=== PATIENT | male | born 1950 | race Caucasian/White ===

== ENCOUNTER → 2020-04-01 12:27 | Outpatient (BNVA) | payer MEDICARE, SELFPAY | PROVIDERS: PCP Physician Assistant; Referring Provider Physician Assistant; Visit Provider Internal Medicine Cardiovascular Disease | DX: I42.1 Obstructive hypertrophic cardiomyopathy (principal); I34.0 Nonrheumatic mitral (valve) insufficiency; I51.7 Cardiomegaly; I25.10 Atherosclerotic heart disease of native coronary artery without angina pectoris; I71.2 Thoracic aortic aneurysm, without rupture; Z79.899 Other long term (current) drug therapy | CPT/HCPCS: 99212 ==

== ENCOUNTER → 2020-10-29 09:08 | Outpatient (BNVA) | payer MEDICARE, SELFPAY | PROVIDERS: PCP Physician Assistant; Referring Provider Physician Assistant; Visit Provider Internal Medicine Cardiovascular Disease | DX: I42.1 Obstructive hypertrophic cardiomyopathy (principal); I25.10 Atherosclerotic heart disease of native coronary artery without angina pectoris; I71.2 Thoracic aortic aneurysm, without rupture | CPT/HCPCS: 93005; 99212 ==

== ENCOUNTER 2021-08-19 06:04 | Outpatient (REF) | payer MEDICARE, SELFPAY ==
[2021-08-19 07:29] LABS: Hematocrit 44.9 % (42.0-52.0); Hemoglobin 15.3 g/dl (14.0-18.0); Mean Corpuscular HGB Conc 34.1 g/dl (31.0-36.0); Mean Corpuscular Hemoglobin 32.8 pg (27.0-33.0); Mean Corpuscular Volume 96.4 fL (80.0-98.0); Mean Platelet Volume 10.5 fL (9.4-12.4); Platelet Count 244 X10*3/uL (160-400); Red Blood Count 4.66 X10*6/uL (4.60-5.80); Red Cell Distribution Width 13.5 % (11.0-16.0); White Blood Count 4.1 X10*3/uL (4.8-10.8)
[2021-08-19 08:03] LABS: Creatinine Urine 45.45 mg/dL; Microalbumin Urine < 5.0 mg/L
[2021-08-19 08:04] LABS: Alanine Aminotransferase 27 U/L (0-40); Albumin Level 4.5 g/dL (3.5-5.0); Alkaline Phosphatase 64 U/L (39-117); Anion Gap 17 (12-20); Aspartate Amino Transferase 24 U/L (5-37); Bilirubin Total 0.8 mg/dL (0.0-1.0); Blood Urea Nitrogen 10 mg/dL (9-16); Calcium 9.7 mg/dL (8.4-10.2); Carbon Dioxide 24 mmol/L (22-29); Chloride 96 mmol/L (96-108); Cholesterol 148 mg/dL; Estimated Glomerular Filt Rate > 60; Glucose Fasting 97 mg/dL (60-99); HDL Cholesterol 67 mg/dL; Potassium 4.8 mmol/L (3.3-5.1); Sodium 132 mmol/L (135-145); Total Protein 7.9 g/dL (6.5-8.0)
[2021-08-19 08:12] LABS: LDL Cholesterol Calculated 69 mg/dl; Triglycerides 61 mg/dL
[2021-08-19 08:31] LABS: Prostate Specific Antigen Scr 6.65 ng/mL (<0.05-4.0); TSH reflex Free T4 0.59 uIU/mL (0.32-4.0)
== END 2021-08-19 06:05 | disposition home or self-care (01) ==
LOC: HO.LAB 06:04
PROVIDERS: PCP Physician Assistant; Visit Provider Physician Assistant
DX: I10 Essential (primary) hypertension (principal); I25.10 Atherosclerotic heart disease of native coronary artery without angina pectoris; Z12.5 Encounter for screening for malignant neoplasm of prostate
CPT/HCPCS: 36415; 80053; 80061; 82043; 84153; 84443; 85027

== ENCOUNTER → 2021-09-05 07:12 | Outpatient (REF) | payer MEDICARE, SELFPAY ==
--- NOTE | 2021-09-05 07:15 | CA_ITS ---
Transthoracic Echocardiogram Patient (Last, First, Middle): Checo Romero M Gender: Male Date of : 1950 Age: 71 Procedure Date: 09/05/2021 Procedure Type: Transthoracic Echocardiogram Location: OP Height: 182.88 cm Weight: 91.17 kg BSA: 2.13 m2 Heart Rate: bpm BP: 110 / 70 mmHg Pie Maker: SOBIA Referring MD: Matias Sesay MD Despatch Clerk: Matias Sesay MD Symptoms: I42.1 - Obstructive hypertrophic cardiomyopathy Study Quality: Good ECG Rhythm: Sinus Conclusions: - 1. Normal LV systolic function with moderate LVH and severe asymmetric septal hypertrophy with impaired relaxation filling pattern and elevated filling pressures, obstructive physiology was not apparent on this study 2. Severely dilated left atrium 3. Mild mitral regurgitation with moderate mitral calcification 4. Mildly dilated ascending aorta 5. No gross pericardial effusion Findings Left Ventricle Normal left ventricular size and systolic function. There is moderately increased left ventricular wall thickness. The visually estimated ejection fraction is between 65-70%. There is no dynamic left ventricular outflow tract obstruction. Spectral Doppler is indicative of an impaired relaxation filling pattern. Elevated filling pressures. E/E prime ratio is >15, consistent with elevated filling pressures. There is severe septal asymmetric hypertrophy. Right Ventricle Normal right ventricular cavity size and systolic function. Atria The left atrium is severely dilated. Interatrial shunt cannot be excluded. The right atrium is mildly dilated. Aortic Valve There is mild calcification of the aortic valve. There is no aortic valve stenosis. There is no aortic valve regurgitation. Mitral Valve There is mild anterior and moderate posterior mitral leaflet thickening. There is moderate mitral annular calcification. There is mild mitral valve regurgitation. There is no mitral valve stenosis. Pulmonic Valve The pulmonic valve was not well visualized. Tricuspid Valve Likely normal tricuspid valve structure and function. There is mild tricuspid valve regurgitation. The right ventricular systolic pressure is normal. The right ventricular systolic pressure is 34 mmHg. Normal right atrial pressure. There is no evidence of pulmonary hypertension. Great Vessels The pulmonary artery was not well visualized. There is mild dilatation of the ascending aorta. Venous The inferior vena cava is normal in size and collapses greater than 50% with inspiration. Pericardium/Pleural There is no evidence of pericardial effusion. Measurements 2D Linear Measurements IVSd: 1.81 0.6-0.9/0.6-1.0 cm LVIDd: 4.16 3.9-5.3/4.2-5.9 cm LVIDd Index: 1.95 2.4-3.2/2.2-3.1 cm/m2 LVIDs: 1.99 2.0-3.6 cm LVPWd: 1.51 0.7-1.1 cm LA Diam: 4.60 2.7-3.8/3.0-4.0 cm LAIDs Index: 2.16 1.5-2.3 cm/m2 LV Mass: 360.38 67-162/88-224 g LV Mass Index: 169.19 43-95/49-115 g/m2 LVOT Diam: 2.50 3.0+(-)1.3 cm 2D Systolic Function EF 4C: 66.20 >55% EF 2C: 65.30 >55% EF BiP: 67.00 >55% Mitral Valve MV Pk E: 1.04 MV PK A: 1.45 MV Decel Time: 281.00 E/A: 0.70 E'Lateral: 7.18 E'Medial: 5.33 E/E' Med: 19.50 E/E' Lat: 14.50 PHT: 82.00 MVA PHT: 2.68 Decel Bailey: 3.72 Aortic Valve AoV Pk Gil: 1.89 AoV Mn Gil: 1.36 AoV VTI: 0.42 AoV Pk Grad: 14.00 Aov Mn Grad: 8.00 QUINTON Cont.VTI: 4.64 LVOT LVOT Pk Gil: 1.71 LVOT Mn Gil: 1.26 LVOT VTI: 0.40 LVOT Pk Grad: 12.00 LVOT Mn Grad: 7.00 LVOT Diam: 2.50 LVOT Area: 4.91 Diastolic Function MV Pk E: 1.04 MV Pk A: 1.45 E/A: 0.70 E'Medial: 5.33 E/E' Med: 19.50 E' Laterial: 7.18 E/E' Lat: 14.50 Right Ventricle TAPSE (mm): 19.40 TVS' Gil: 16.10 Tricuspid Valve TR Pk Gil: 2.80 TR Pk Grad: 31.00 RA Press: 3.00 RVSP: 34.00 Great Vessels Aorta Sinus of Valsalva: 3.80 2.0-3.[address] [place]: 2.74 1.7-3.4 cm Ao Asc: 3.80 2.1-3.4 cm Updated in Other Vendor System with Status of Final Matias Sesay MD electronically signed on 09/06/2021 1:43:47 PM with status of Final
== END ==
LOC: HO.CARD 07:12
PROVIDERS: Visit Provider Internal Medicine Cardiovascular Disease
DX: I42.1 Obstructive hypertrophic cardiomyopathy (principal)
CPT/HCPCS: 93306

== ENCOUNTER → 2021-11-03 08:30 | Outpatient (BNVA) | payer MEDICARE, SELFPAY | PROVIDERS: PCP Physician Assistant; Referring Provider Physician Assistant; Visit Provider Internal Medicine Cardiovascular Disease | DX: I42.1 Obstructive hypertrophic cardiomyopathy (principal); I25.10 Atherosclerotic heart disease of native coronary artery without angina pectoris; I71.2 Thoracic aortic aneurysm, without rupture | CPT/HCPCS: 93005; 99212 ==

== ENCOUNTER 2022-04-06 05:58 | Outpatient (REF) | payer MEDICARE, SELFPAY ==
[2022-04-06 07:36] LABS: Hematocrit 46.4 % (42.0-52.0); Hemoglobin 15.6 g/dl (14.0-18.0); Mean Corpuscular HGB Conc 33.6 g/dl (31.0-36.0); Mean Corpuscular Hemoglobin 32.3 pg (27.0-33.0); Mean Corpuscular Volume 96.1 fL (80.0-98.0); Mean Platelet Volume 10.7 fL (9.4-12.4); Platelet Count 211 X10*3/uL (160-400); Red Blood Count 4.83 X10*6/uL (4.60-5.80); Red Cell Distribution Width 13.8 % (11.0-16.0)
[2022-04-06 07:57] LABS: Alanine Aminotransferase 51 U/L (0-40); Albumin Level 4.2 g/dL (3.5-5.0); Alkaline Phosphatase 71 U/L (39-117); Anion Gap 19 (12-20); Aspartate Amino Transferase 28 U/L (5-37); Blood Urea Nitrogen 14 mg/dL (9-16); Calcium 9.3 mg/dL (8.4-10.2); Carbon Dioxide 22 mmol/L (22-29); Chloride 102 mmol/L (96-108); Cholesterol 134 mg/dL; Estimated Glomerular Filt Rate > 60; Glucose Fasting 96 mg/dL (60-99); HDL Cholesterol 52 mg/dL; LDL Cholesterol Calculated 70 mg/dl; Potassium 4.4 mmol/L (3.3-5.1); Sodium 139 mmol/L (135-145); Total Protein 7.2 g/dL (6.5-8.0); Triglycerides 64 mg/dL
== END 2022-04-06 05:59 | disposition home or self-care (01) ==
LOC: HO.LAB 05:58
PROVIDERS: PCP Physician Assistant; Visit Provider Physician Assistant
DX: I25.10 Atherosclerotic heart disease of native coronary artery without angina pectoris (principal); I10 Essential (primary) hypertension
CPT/HCPCS: 36415; 80053; 80061; 85027

== ENCOUNTER → 2022-04-27 07:35 | Outpatient (REF) | payer MEDICARE, SELFPAY ==
--- NOTE | 2022-04-27 07:38 | HM_ITS ---
Conclusion: 1. Patient was monitored for total period of 3 days and 1 hour 2. Baseline was atrial fibrillation with average heart of 92 beats per minute 3. No significant pauses noted 4. Total of 5878 PVCs accounting for 1.5% of total beats account for frequent PVCs 5. 1 3 beat run of nonsustained VT at 129 beats per minute 6. Patient reported event correlated with underlying atrial fibrillation MTDD
== END ==
LOC: HO.CARD 07:35
PROVIDERS: PCP Physician Assistant; Visit Provider Physician Assistant
DX: I48.91 Unspecified atrial fibrillation (principal)
CPT/HCPCS: 93242

== ENCOUNTER → 2022-05-22 08:32 | Outpatient (BNVA) | payer MEDICARE, SELFPAY | PROVIDERS: PCP Physician Assistant; Referring Provider Physician Assistant; Visit Provider Internal Medicine Cardiovascular Disease | DX: I48.19 Other persistent atrial fibrillation (principal); I42.1 Obstructive hypertrophic cardiomyopathy; I71.20 Thoracic aortic aneurysm, without rupture, unspecified | CPT/HCPCS: 93005; 99212 ==

== ENCOUNTER 2022-06-03 12:22 | Day surgery (SDC) | payer MEDICARE, SELFPAY ==
[2022-05-28 11:09] VITALS: BMI 28.5
--- NOTE | 2022-06-02 10:38 | P.CONAN_ITS ---
Documented by User: Yoly Gleason NP 06/02/22 10:39 HPI - Anesthesia Eval Consult details Narrative: 72yo M for Cardioversion Radha [facility] Active Problems Active Problems: All Active Problems (Updated 05/28/22 @ 11:11 by Kalina Randall RN) Elevated PSA (Acute) Folliculitis (Acute) Medicare annual wellness visit, initial (Acute) Colon cancer screening (Acute) Persistent atrial fibrillation (Acute) HOCM (hypertrophic obstructive cardiomyopathy) (Acute) LVH (left ventricular hypertrophy) (Acute) CAD (coronary artery disease) (Acute) Thoracic aortic aneurysm (Acute) Mitral regurgitation (Acute) HTN (hypertension) (Acute) Past Medical History Medical History (Updated 05/28/22 @ 11:11 by Kalina Randall RN) CAD (coronary artery disease) History of COVID-19 HOCM (hypertrophic obstructive cardiomyopathy) HTN (hypertension) LVH (left ventricular hypertrophy) Mitral regurgitation Thoracic aortic aneurysm Family History Family History Father Bladder cancer Mother ARF (acute renal failure) Surgical History Surgical History No pertinent past surgical history Social History Social History Housing: House Are you a primary lawn care specialist to a significant other at home: No Do you presently have visiting nurse or other home services: No Alcohol intake: current Alcohol intake frequency: holidays/special occasions only Patient Tobacco Use Status: Never used Tobacco e-Cigarette/Vaping Use: Never Used Second Hand Smoke Exposure: No Use of substances other than those prescribed or required for medical reasons: No Have you been hit, kicked, punched, or otherwise hurt by someone within the past year? If so, by whom?: No Are you DNR?: No Advance Directives: No Advance Directives Information Provided: Yes (brochure mailed) Advance Directives on File: No Recently lost weight without trying: No Eating poorly because of decreased appetite: No Nutrition Risks: No Nutritional Risk Poor oral hygiene: No service: No Current occupational status: employed Cognitive needs: No Hearing needs: No Vision needs: Yes Meds Allergies Allergy/AdvReac Type Severity Reaction Status Date / Time No Known Allergies Allergy Verified 05/22/22 08:41 [No Known Allergies*] Home Medications Medication Instructions Recorded Confirmed Last Taken Type simvastatin 20 mg tablet 20 mg PO QAM 05/28/22 05/28/22 Unknown History Exam Exam Date and Time: June 02, 2022 1038 Height,Weight and Vital Signs: Height 6 ft Weight 95.254 kg Narrative Narrative: EKG 04/2022 atrial fibrillation rapid ventricular response with left axis deviation ECHO 08/2021 Conclusions: -? 1.? Normal LV systolic function with moderate LVH and severe? asymmetric septal hypertrophy with impaired relaxation filling ? pattern and elevated filling pressures,? obstructive physiology? was not apparent on this study ? 2. Severely dilated left atrium? 3.? Mild mitral regurgitation with moderate mitral calcification 4. Mildly dilated ascending aorta? 5.? No gross pericardial effusion Assessment and Plan Assessment Anesthesia Assessment: Chart Reviewed Documented by User: Zana Escoto MD 06/03/22 13:58 [facility] Past Medical History Medical History (Updated 05/28/22 @ 11:11 by Kalina Randall RN) CAD (coronary artery disease) History of COVID-19 HOCM (hypertrophic obstructive cardiomyopathy) HTN (hypertension) LVH (left ventricular hypertrophy) Mitral regurgitation Thoracic aortic aneurysm Family History Family History Father Bladder cancer Mother ARF (acute renal failure) Family history of problems with anesthesia: No Surgical History Surgical History No pertinent past surgical history History of Problems with Anesthesia: No Social History Social History Housing: House Are you a primary lawn care specialist to a significant other at home: No Do you presently have visiting nurse or other home services: No Alcohol intake: current Alcohol intake frequency: holidays/special occasions only Patient Tobacco Use Status: Never used Tobacco e-Cigarette/Vaping Use: Never Used Second Hand Smoke Exposure: No Use of substances other than those prescribed or required for medical reasons: No Have you been hit, kicked, punched, or otherwise hurt by someone within the past year? If so, by whom?: No Are you DNR?: No Advance Directives: No Advance Directives Information Provided: Yes (brochure mailed) Advance Directives on File: No Recently lost weight without trying: No Eating poorly because of decreased appetite: No Nutrition Risks: No Nutritional Risk Poor oral hygiene: No service: No Current occupational status: employed Cognitive needs: No Hearing needs: No Vision needs: Yes Meds Allergies Allergy/AdvReac Type Severity Reaction Status Date / Time No Known Allergies Allergy Verified 05/22/22 08:41 [No Known Allergies*] Home Medications Medication Instructions Recorded Confirmed Last Taken Type simvastatin 20 mg tablet 20 mg PO QAM 05/28/22 05/28/22 Unknown History Exam Airway Mallampati Class: III TM Dist: >3cm Neck ROM: Full Loose/Missing/Broken Teeth: No Heart: irrr Lungs: clear Assessment and Plan Final Anesthetic Review Family History of Problems with Anesthesia: No History of Problems with Anesthesia: No NPO: Yes ASA Class: III Final Preanesthetic Review: No Changes in Pt Med Stat, Meds/Allgs Chart Reviewed, Consent Obtained/Reviewed and Anes Risks/Benef Reviewed Patient Risk: Intermediate Procedure Risk: Low Anesthetic Plan Anesthetic Plan: MAC: Disposition: Standard PACU
[2022-06-03] VITALS (7 sets, daily range): BP systolic 102–147; BP diastolic 69–95; PULSE 59–94; RESP 12–18; TEMP 36.4–36.7; O2SAT 93–99
[2022-06-03] MEDS: Lactated Ringers 1,000 ML 50 ML IVCONT (13:21)
--- NOTE | 2022-06-03 14:11 | MHC.SHP ---
Pre-Procedural Eval Section A Date of Service: 06/03/22 The patient is an INPATIENT: No Changes since office visit: Yes Patient answered all questions; No Cold of Flu in the past 2 weeks, No New Medical Problems and No Changes in Medication The History & Physical has been completed within 30 days and I have reviewed it.: Yes Section B Chief Complaint: Paroxysmal atrial fibrillation Allergies: Allergies Allergy/AdvReac Type Severity Reaction Status Date / Time No Known Allergies Allergy Verified 05/22/22 08:41 [No Known Allergies*] Plan I have reviewed the history and physical and performed a pertinent physical examination on my patient. No changes have occurred unless specified. Time Spent With Patient Time: Total time managing care of this patient today ____ minutes.
--- NOTE | 2022-06-03 14:26 | ECG_ITS ---
Test Reason : postop Blood Pressure : / mmHG Vent. Rate : 061 BPM Atrial Rate : 061 BPM P-R Int : 234 ms QRS Dur : 096 ms QT Int : 454 ms P-R-T Axes : 024 -34 032 degrees QTc Int : 457 ms Sinus rhythm with 1st degree A-V block Possible Left atrial enlargement Left axis deviation Minimal voltage criteria for LVH, may be normal variant ( [place] product ) Abnormal ECG No previous ECGs available Referred By: Matias Sesay Electronically Signed By:AZALIA GUADALUPE
--- NOTE | 2022-06-03 14:28 | HO.CARDIVERS ---
Cardioversion Procedure Note Cardioversion Date of Procedure: Today Ordering Provider: Myself Performing Provider: Myself Indication for Procedure: Persistent atrial fibrillation Pre-Op Diagnosis: Persistent atrial fibrillation Post-Op Diagnosis: Sinus rhythm Performed with Transesophageal Echo: No History: See my office note Consent: Verbal and Written consent was obtained from the patient before starting the procedure and confirming oral anticoagulation use. The patient was made aware of the risk of synchronized cardioversion including benefits and alternatives Procedure: After consent obtained, cardioversion pads were attached in anteroposterior configuration and the patient was sedated by the anesthesia team. Once adequate sedation achieved, patient was delivered 200 joules of biphasic synchronized energy in anteroposterior configuration Complications: None Impression: Successful conversion to sinus rhythm Recommendations: 1. Twelve lead EKG 2. Continue Multaq and oral anticoagulation 3. Follow up in the clinic after 4 weeks after Holter monitor
== END 2022-06-03 15:32 | disposition home or self-care (01) ==
PROVIDERS: PCP Physician Assistant; Visit Provider Internal Medicine Cardiovascular Disease
PROC: 5A2204Z Restoration of Cardiac Rhythm, Single (ICD-10-PCS; principal; 2022-06-03 14:00)
DX: I48.19 Other persistent atrial fibrillation (principal); Z79.01 Long term (current) use of anticoagulants; I42.1 Obstructive hypertrophic cardiomyopathy; I71.20 Thoracic aortic aneurysm, without rupture, unspecified; I10 Essential (primary) hypertension; I25.10 Atherosclerotic heart disease of native coronary artery without angina pectoris; Z79.899 Other long term (current) drug therapy
CPT/HCPCS: 92960; 93005

== ENCOUNTER → 2022-06-18 06:56 | Outpatient (REF) | payer MEDICARE, SELFPAY ==
--- NOTE | 2022-06-18 06:58 | HM_ITS ---
Conclusion: 1. Patient was monitored for total period of 3 days 2. Baseline was normal sinus rhythm with average heart of 69 beats per minute with first-degree AV block 2. No significant episodes of atrial fibrillation 4. Total of 1730 PACs accounting for 0.6% total beats account for occasional PACs 5. Total of 1979 PVCs accounting for 0.7% total beats account for occasional PVCs 6. 3 episodes of nonsustained VT with the fastest at 129 beats per minute and the longest as 6 beats 7. No significant pauses or bradycardia noted 8. No patient reported events MTDD
== END ==
LOC: HO.CARD 06:56
PROVIDERS: PCP Physician Assistant; Visit Provider Internal Medicine Cardiovascular Disease
DX: I48.19 Other persistent atrial fibrillation (principal)
CPT/HCPCS: 93242

== ENCOUNTER → 2022-06-30 12:46 | Outpatient (BNVA) | payer MEDICARE, SELFPAY | PROVIDERS: PCP Physician Assistant; Referring Provider Physician Assistant; Visit Provider Internal Medicine Cardiovascular Disease | DX: I48.0 Paroxysmal atrial fibrillation (principal); I42.1 Obstructive hypertrophic cardiomyopathy; I71.20 Thoracic aortic aneurysm, without rupture, unspecified | CPT/HCPCS: 93005; 99212 ==

== ENCOUNTER → 2022-08-31 08:13 | Outpatient (BNVA) | payer MEDICARE, SELFPAY | PROVIDERS: PCP Physician Assistant; Referring Provider Physician Assistant; Visit Provider Internal Medicine Cardiovascular Disease | DX: I44.0 Atrioventricular block, first degree (principal); R94.31 Abnormal electrocardiogram [ECG] [EKG] | CPT/HCPCS: 93005 ==

== ENCOUNTER → 2022-11-16 08:26 | Outpatient (REF) | payer SELFPAY ==
--- NOTE | 2022-11-16 08:30 | CA_ITS ---
Transthoracic Echocardiogram Patient (Last, First, Middle): Checo Romero M Gender: Male Date of : 1950 Age: 72 Procedure Date: 11/16/2022 Procedure Type: Transthoracic Echocardiogram Location: OP Height: 182.88 cm Weight: 92.99 kg BSA: 2.15 m2 Heart Rate: 66 bpm BP: 124 / 68 mmHg Vacation Planner: Referring MD: Matias Sesay MD Symptoms: I42.1 - Obstructive hypertrophic cardiomyopathy Study Quality: Adequate ECG Rhythm: Sinus Conclusions: - The left ventricular systolic function is normal. The calculated ejection fraction is 64% by biplane method. - There is severely increased left ventricular wall thickness. - The left atrium is severely dilated. - There is moderate posterior mitral annular calcification. - There is mild dilatation of the ascending aorta measuring 4.20 cm. Findings Left Ventricle Normal left ventricular cavity size. There is severely increased left ventricular wall thickness. The left ventricular systolic function is normal. The calculated ejection fraction is 64% by biplane method. There is no evidence of regional wall motion abnormalities. There is no dynamic left ventricular outflow tract obstruction. Evidence suggests grade II (moderate) diastolic dysfunction. LV peak GLS -16.4%. Right Ventricle Normal right ventricular cavity size and systolic function. Atria The left atrium is severely dilated. The right atrium is normal in size. Aortic Valve There is a normal trileaflet aortic valve. There is no aortic valve stenosis. There is no aortic valve regurgitation. Mitral Valve There is moderate posterior mitral annular calcification. There is mild mitral valve regurgitation. There is no mitral valve stenosis. Pulmonic Valve The pulmonic valve is likely normal. Tricuspid Valve Normal tricuspid valve structure. There is mild tricuspid valve regurgitation. Borderline RVSP. Great Vessels There is mild dilatation of the ascending aorta measuring 4.20 cm. Venous The inferior vena cava is normal in size and collapses greater than 50% with inspiration. Pericardium/Pleural There is no evidence of pericardial effusion. Prior Study Comparison Changes noted compared to prior study dated: 09/05/2021. see comment on ascending aorta. Measurements 2D Linear Measurements IVSd: 1.56 0.6-0.9/0.6-1.0 cm LVIDd: 4.12 3.9-5.3/4.2-5.9 cm LVIDd Index: 1.92 2.4-3.2/2.2-3.1 cm/m2 LVIDs: 2.29 2.0-3.6 cm LVPWd: 1.50 0.7-1.1 cm LA Diam: 4.70 2.7-3.8/3.0-4.0 cm LAIDs Index: 2.19 1.5-2.3 cm/m2 LV Mass: 312.22 67-162/88-224 g LV Mass Index: 145.22 43-95/49-115 g/m2 LVOT Diam: 2.40 3.0+(-)1.3 cm 2D Systolic Function EF 4C: 63.80 >55% EF 2C: 63.20 >55% EF BiP: 63.80 >55% Mitral Valve MV VTI: 0.41 MV Pk Gil: 1.21 MV Mn Gil: 0.75 MV Pk Grad: 6.00 MV Mn Grad: 3.00 MV Pk E: 1.20 MV PK A: 1.25 MV Decel Time: 218.00 E/A: 1.00 E'Lateral: 5.33 E'Medial: 5.33 E/E' Med: 22.50 E/E' Lat: 22.50 PHT: 64.00 MVA PHT: 3.44 MVA Continuity: 3.54 Decel [place]: 5.50 Aortic Valve AoV Pk Gil: 1.88 AoV Mn Gil: 1.29 AoV VTI: 0.46 AoV Pk Grad: 14.00 Aov Mn Grad: 8.00 QUINTON Cont.VTI: 3.17 LVOT LVOT Pk Gil: 1.34 LVOT Mn Gil: 0.90 LVOT VTI: 0.32 LVOT Pk Grad: 7.00 LVOT Mn Grad: 4.00 LVOT Diam: 2.40 LVOT Area: 4.52 Diastolic Function MV Pk E: 1.20 MV Pk A: 1.25 E/A: 1.00 E'Medial: 5.33 E/E' Med: 22.50 E' Laterial: 5.33 E/E' Lat: 22.50 Right Ventricle TAPSE (mm): 31.60 TVS' Gil: 11.10 Tricuspid Valve TR Pk Gil: 2.82 TR Pk Grad: 32.00 RA Press: 3.00 RVSP: 35.00 Great Vessels Aorta Sinus of Valsalva: 3.60 2.0-3.5 cm Ao Asc: 4.20 2.1-3.4 cm Pulmonary Valve PV Pk Gil: 1.62 Peak PV Grad: 10.00 Updated in Other Vendor System with Status of Final Joe Andrews MD electronically signed on 11/16/2022 4:28:38 PM with status of Final
--- NOTE | 2022-11-16 08:30 | HM_ITS ---
* Total monitoring time 3 days. * Underlying rhythm is sinus. Average ventricular rate 69/Min. Range 59 to 104/Min. * Rare premature ventricular ectopy with minimal burden. 2 short runs, 4 beats and 5 beats. * Rare premature supraventricular ectopy with minimal burden. * No sustained arrhythmias. * Brief mobitz 1 wenckebach block during sleep hours. * No patient markers or diary events. MTDD
== END ==
LOC: HO.CARD 08:26
PROVIDERS: PCP Physician Assistant; Visit Provider Internal Medicine Cardiovascular Disease
DX: I42.1 Obstructive hypertrophic cardiomyopathy (principal); I48.19 Other persistent atrial fibrillation
CPT/HCPCS: 93242; 93306; 93356

== ENCOUNTER 2022-12-28 10:32 | Outpatient (AMB) | payer MEDICARE, SELFPAY ==
--- NOTE | 2022-12-28 10:33 | MHC.OFFVIS ---
Intake Vital Signs 12/28/22 10:35 Height 6 ft Weight 196 lb 3.382 oz BMI 26.6 BP 110/70 Blood Pressure Location Lt brachial Position Sitting Pulse 83 Intake Visit Reasons: 6 mth f/ up Intake Note: 6 month follow-up with ekg feeling good Craft Worker Required: No Allergies No Known Allergies [No Known Allergies*] Allergy (Verified 05/22/22 08:41) Medication List - Last Reconciled 12/28/22 by Matias Sesay MD apixaban (Eliquis) 5 mg PO BID 90 days dronedarone (Multaq) 400 mg PO BID 90 days lisinopril 20 mg PO DAILY metoprolol succinate ER (Toprol XL) 50 mg PO DAILY pravastatin 40 mg PO DAILY 90 days HPI HPI Comments History of Present Illness Details Checo comes for follow-up. He has been doing well from cardiac perspective. Has had no recurrent episodes of atrial fibrillation. Tolerating his medications well. Denies any orthopnea, PND. Denies any exertional chest pain or shortness of breath. No lightheadedness, syncope. Takes all his medications. Takes all his medications regularly denies any complications. No bleeding issues or neurologic events. Most recent echocardiogram shows mild enlargement of thoracic aorta with severe LVH with grade 2 diastolic dysfunction with no noted left ventricular outflow tract obstruction on this study. [facility] Medical History CAD (coronary artery disease) History of COVID-19 HOCM (hypertrophic obstructive cardiomyopathy) HTN (hypertension) LVH (left ventricular hypertrophy) Mitral regurgitation Persistent atrial fibrillation Thoracic aortic aneurysm Surgical History No pertinent past surgical history Family History Father Bladder cancer Mother ARF (acute renal failure) Social History Housing: House Are you a primary child care attendant to a significant other at home: No Do you presently have visiting nurse or other home services: No Alcohol intake: current Alcohol intake frequency: holidays/special occasions only Patient Tobacco Use Status: Never used Tobacco e-Cigarette/Vaping Use: Never Used Second Hand Smoke Exposure: No service: No Current occupational status: employed Cognitive needs: No Hearing needs: No Vision needs: Yes Review of Systems Const Denies chills, Denies fatigue, Denies fever(s), Denies frequent falls, Denies weakness, Denies weight gain and Denies weight loss ENT Denies dizziness Card Denies chest pain, Denies leg edema, Denies lightheadedness, Denies palpitations, Denies dyspnea, Denies dyspnea on exertion, Denies orthopnea and Denies other (loss of consciousness) Resp Denies cough, Denies dyspnea and Denies dyspnea on exertion GI Denies hematochezia and Denies change in stool character Musc Denies abnormal gait, Denies muscle weakness, Denies numbness, Denies radiating pain into limb and Denies tingling Neuro Denies abnormal gait, Denies dizziness, Denies frequent falls, Denies numbness, Denies tingling and Denies weakness Endo Denies fatigue and Denies palpitations Physical Exam Vital Signs: Last Vital Signs Pulse 83 12/28/22 10:35 BP 110/70 12/28/22 10:35 BMI result Body Mass Index 26.6 Const General: cooperative, comfortable, no acute distress, alert, awake, Physically active and well groomed Nutritional Appearance: overweight Orientation/consciousness: patient oriented x3 Limitations: no limitations Neck Neck: Yes trachea midline, Yes supple and Yes no JVD Resp Effort & Inspection: normal respiratory effort Auscultation: clear to auscultation bilaterally Cardio Jugular venous distension: no JVD Palpation: normal PMI Rate: regular rate Rhythm: regular rhythm Heart sounds: S1 normal heart sound present, S2 normal heart sound present, no click, no gallops and Murmur heart sound present systolic early GI Auscultation: normal bowel sounds Skin General skin exam: no rashes or lesions noted Neuro General: patient oriented x3 and no focal motor deficits Extrem General: Yes no clubbing, cyanosis or edema Psych Appearance: grossly normal Office Procedures EKG Details: EKG shows sinus rhythm first-degree AV block with possible left atrial enlargement with septal QS pattern with nonspecific ST changes with normal QTC interval [id number], Complete Assessment & Plan Assessment & Plan (1) Paroxysmal atrial fibrillation: Code(s): I48.0 - Paroxysmal atrial fibrillation Plan: Paroxysmal atrial fibrillation which has remained suppressed on therapy with Multaq. He has done very well with rhythm control approach will continue pursue rhythm control approach. Continue Multaq 400 mg b.i.d.. Semi annual renal function test should be pursued given that he is on oral anticoagulation with Eliquis. Continue the same at 5 mg b.i.d.. Quarterly EKGs will be required and will be scheduled for him while on Multaq therapy. Continue aggressive blood pressure control. Given his significant LVH in atrial fibrillation would suggest him to have screening for cardiac infiltrative disorder such as amyloidosis especially ATTR type. (2) LVH (left ventricular hypertrophy): Comment: Left ventricular wall thickness which is increased out of proportion to his hypertension. However there is no evidence of infiltrative disorder such as amyloidosis. Continue aggressive control of blood pressure at this time. Will follow with echocardiogram on a yearly basis. Code(s): I51.7 - Cardiomegaly Plan: Significant left ventricle hypertrophic could be related to hypertension but is out of proportion. On MRI there is is suggestive hypertrophic cardiomyopathy. Although other infiltrative disorder need to be ruled out. Will suggest him to undergo cardiac amyloidosis study as well as blood test to evaluate for light chain amyloidosis. No signs or symptoms of right heart failure. Continue aggressive blood pressure control. (3) Thoracic aortic aneurysm: Code(s): I71.2 - Thoracic aortic aneurysm, without rupture Plan: Thoracic aortic aneurysm which is remained mild. Continue to monitor clinically and by echocardiogram on annual basis. No interventions required. Continue aggressive risk factor modification. Blood pressure is well optimized LDL is well optimized. Advised to avoid sudden strenuous isometric exercise. Will follow up in the clinic in 1 year with me. He EKGs every 3 months Coding Level of Care Code Est Pt Level 4 (00100) Diagnoses Paroxysmal atrial fibrillation I48.0 LVH (left ventricular hypertrophy) I51.7 Thoracic aortic aneurysm I71.2 CPT Codes EKG - CPT: [id number], Complete ([id number])
[2022-12-28 10:35] VITALS: BP 110/70; PULSE 83; BMI 26.6
== END 2022-12-28 10:56 | disposition home or self-care (01) ==
PROVIDERS: Visit Provider Internal Medicine Cardiovascular Disease
DX: I48.0 Paroxysmal atrial fibrillation (principal); I51.7 Cardiomegaly; I71.20 Thoracic aortic aneurysm, without rupture, unspecified
CPT/HCPCS: 93010; 99214

== ENCOUNTER → 2022-12-28 10:32 | Outpatient (BNVA) | payer MEDICARE, SELFPAY | PROVIDERS: Visit Provider Internal Medicine Cardiovascular Disease | DX: I48.0 Paroxysmal atrial fibrillation (principal); I51.7 Cardiomegaly; I71.20 Thoracic aortic aneurysm, without rupture, unspecified | CPT/HCPCS: 93005; 99212 ==

== ENCOUNTER 2023-01-07 09:18 | Outpatient (AMB) | payer MEDICARE, SELFPAY ==
--- NOTE | 2023-01-07 09:18 | A.OFFPC_ITS ---
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 Accompanied by: Self / Same As Patient Allergies No Known Allergies [No Known Allergies*] Allergy (Verified 01/07/23 09:32) Medication List - Last Reconciled 01/07/23 by Jean-Claude Rios PA-C apixaban (Eliquis) 5 mg PO BID 90 days dronedarone (Multaq) 400 mg PO BID 90 days lisinopril 20 mg PO DAILY metoprolol succinate ER (Toprol XL) 50 mg PO DAILY pravastatin 40 mg PO DAILY 90 days Tobacco use date assessed: 01/07/23 Fall risk assessment: No Falls in past year Last assessed Fall Risk: 01/07/23 Dental Screening Dental Screen Date: 01/07/23 Did you have a dental visit in the last 12 months?: Yes Did you have a dental problem in the last 6 months where you did not have access to dental care?: No Was dental information given to patient?: Patient has dentist HPI f/u HTN/ AFIB HPI Details Patient is a 72 y/o M here today for follow-up visit Patient has a past medical history of hypertension, hyperlipidemia, BPH, coronary artery disease.. ? .. ? CAD: Patient was followed by Dr. Sesay, recent cardiac showing moderate hypertrophic cardiomyopathy.? This will be followed and no? intervention at the same.? Patient denies any issues with chest pain, headaches, dizziness. .. AFib (paroxysmal): Recently found to have AFib, underwent cardiac cardioversion and has been started on anticoagulation. Denies any overt signs of bleeding. Rate / rhythm control with metoprolol and multaq. ECHO- showing LVH and holter has been stable. No evidence of protein deposit disease. Charge Entry Clerk sending patient for nuclear cardiac test .. Hypertension:? Blood pressure elevated today in office in office likely secondary to his AFib. ? .. ? Impaired fasting blood sugars:? Blood sugars have been much improved. Will recheck fasting blood sugars ? .. ? Elevated PSA: PSA has been elevated over the last several, most recent PSA is 7.7, patient denies any weak stream though does report increase urination at night.? He reports he has seen a urologist many years ago declines my offers to see Urology at this time.? He would like another PSA checked and if still elevated will likely consider finasteride. ? .. ? HLD: Has been stable , no side effects from the statin. [facility] Medical History (Updated 01/07/23 @ 09:47 by Jean-Claude Rios PA-C) CAD (coronary artery disease) Elevated PSA History of COVID-19 HOCM (hypertrophic obstructive cardiomyopathy) HTN (hypertension) LVH (left ventricular hypertrophy) Mitral regurgitation Persistent atrial fibrillation Thoracic aortic aneurysm Surgical History No pertinent past surgical history Family History Father Bladder cancer Mother ARF (acute renal failure) Social History Housing: House Are you a primary child care centre director to a significant other at home: No Do you presently have visiting nurse or other home services: No Alcohol intake: current Alcohol intake frequency: holidays/special occasions only Patient Tobacco Use Status: Never used Tobacco e-Cigarette/Vaping Use: Never Used Second Hand Smoke Exposure: No service: No Current occupational status: employed Cognitive needs: No Hearing needs: No Vision needs: Yes Questionnaire PHQ-9 Over the last 2 weeks, how often have you been bothered by any of the following problems? 1. Little interest or pleasure in doing things: not at all 2. Feeling down, depressed, or hopeless: not at all 3. Trouble falling or staying asleep, or sleeping too much: not at all 4. Feeling tired or having little energy: not at all 5. Poor appetite or overeating: not at all 6. Feeling bad about yourself - or that you are a failure or have let yourself or your family down: not at all 7. Trouble concentrating on things, such as reading the newspaper or watching television: not at all 8. Moving or speaking so slowly that other people could have noticed. Or the opposite - being so fidgety or restless that you have been moving around a lot more than usual: not at all 9. Thoughts that you would be better off or of hurting yourself in some way: not at all Total score: 0 Depression Screening Interpretation: Negative 13477 - PHQ-9 Billing: Yes Source: Developed by Drs. Wilberto Gottlieb, Adelita Erazo, Jin Sabillon and colleagues, with an educational loyd from [employer]. Thrive Questionnaire Date Thrive assessed: 01/07/23 I am a: Patient What is your living situation today?: I have a steady place to live Within the past 12 months, did the food you bought not last and you didn't have the money to get more?: Never true Within the past 12 months, did you worry whether your food would run out before you got money to buy more?: Never true Do you have trouble paying for medicines?: No Do you have trouble getting transportation to medical appointments?: No Do you have trouble paying your heating and electricity bill?: No Do you have trouble taking care of your child, family member or friend?: No Do you have trouble with day-to-day activities such as bathing, preparing meals, shopping, managing finances, etc.?: No Are you currently unemployed and looking for a job?: No Are you interested in more education?: No Please select the resources that you would like help with: None Currently or been in a relationship where the following occur: no concerns reported TARIQ-7 AMB Questionnaire TARIQ-7 Date TARIQ - 7 assessed: 01/07/23 Feeling nervous, anxious, or on edge: 0 = Not at all Not being able to stop or control worryin = Not at all Worrying too much about different things: 0 = Not at all Trouble relaxin = Not at all Being so restless that it is hard to sit still: 0 = Not at all Becoming easily annoyed or irritable: 0 = Not at all Feeling afraid as if something awful might happen: 0 = Not at all Total TARIQ-7 score (0-4 normal; 5-9 mild; 10-14 moderate; 15-21 severe): 0 Source: Developed by Adelita Sung. Castro, Jin Sabillon and colleagues, with an educational loyd from [employer]. TARIQ-7 Assessment Billing TARIQ-7 Assessment Tool: TARIQ-7 Assessment 12192 Review of Systems Const Denies headache(s) Eyes Denies loss of vision ENT Denies vertigo, Denies dizziness, Denies headache(s) and Denies sore throat Card Denies chest pain, Denies leg edema and Denies lightheadedness Resp Denies cough, Denies hemoptysis and Denies wheezing GI Denies abdominal pain, Denies melena, Denies constipation, Denies diarrhea and Denies vomiting Denies dysuria, Denies urinary frequency and Denies urinary urgency Musc Denies arthralgias, Denies joint swelling, Denies numbness and Denies tingling Neuro Denies Abnormal speech present, Denies behavioral changes, Denies vertigo, Denies dizziness, Denies headache(s), Denies loss of vision, Denies memory loss, Denies numbness and Denies tingling Psych Denies anxiety, Denies behavioral changes, Denies depression, Denies memory loss and Denies panic attacks Alvaro/Lymph Denies easy bleeding and Denies easy bruising Aller/Immun Denies wheezing Physical exam (Primary Care) Vital Signs: Last Vital Signs Pulse 85 01/07/23 09:20 BP 120/70 01/07/23 09:20 Pulse Ox 99 01/07/23 09:20 Oxygen Delivery Method Room Air 01/07/23 09:20 BMI result Body Mass Index 27.3 Tobacco/Smoking Status: Tobacco use Status Tobacco use date assessed 01/07/23 01/07/23 09:19 Patient Tobacco Use Status Never used Tobacco 01/07/23 09:19 e-Cigarette/Vaping Use Never Used 01/07/23 09:19 PHQ-9: PHQ-9 Score PHQ-9: Total score 0 01/07/23 09:26 Depression Screening Interpretation: Negative Thrive Assessment: Date of Thrive Assessment Date Thrive assessed 01/07/23 01/07/23 09:26 Currently or been in a relationship where the following occur: no concerns reported Const General: healthy appearing, no acute distress, alert and awake Nutritional Appearance: well nourished Orientation/consciousness: oriented to person, oriented to place and oriented to time HENMT Ears: TM's normal bilaterally General nose exam: Normal nasal mucous membranes and turbinates present Eyes Conjunctivae: conjunctivae normal Sclerae: sclerae normal Pupils: Equal, round and reactive pupils present Neck Neck: Yes no lymphadenopathy and Yes no JVD Thyroid: Thyroid normal Carotids: no bruits Resp Effort & Inspection: normal respiratory effort and not tachypneic Auscultation: no crackles, no rales, no rhonchi and no wheezes Cardio Rate: regular rate Rhythm: regular rhythm Heart sounds: no murmurs and normal S1 and S2 GI Palpation (GI): Soft to palpation, nontender, no hepatomegaly and no splenomegaly Auscultation: normal bowel sounds Skin General skin exam: no rashes or lesions noted and dry skin Neuro General: oriented to person, oriented to place and oriented to time Cranial nerves: Yes Equal, round and reactive pupils present Speech: No Abnormal speech present Gait exam (Neuro): Normal gait present Motor exam (neuro): no tremor noted Extrem Right upper extremity: full ROM Left upper extremity: full ROM Right lower extremity: full ROM; no edema Left lower extremity: full ROM; no edema Psych Mental Status: mental status grossly normal Speech and movement: Normal speech and movement present Affect: normal affect Attitude: cooperative Thought process: Normal thought process present Assessment and Plan Assessment & Plan (1) Paroxysmal atrial fibrillation: Code(s): I48.0 - Paroxysmal atrial fibrillation Plan: Patient now anticoagulated with Eliquis and on rate control and rhythm control. Reports no palpitations, dizziness or headaches. 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 (2) CAD (coronary artery disease): Code(s): I25.10 - Atherosclerotic heart disease of [place] coronary artery without angina pectoris Qualifiers: Coronary Disease-Associated Artery/Lesion type: [place] artery [place] vs. transplanted heart: [place] heart Associated angina: without angina Qualified Code(s): I25.10 - Atherosclerotic heart disease of [place] coronary artery without angina pectoris Plan: Continues on statin therapy, most recent lipid panel showing appropriate total cholesterol and LDL. Goal LDL to remain below 70. (3) HTN (hypertension): Code(s): I10 - Essential (primary) hypertension Qualifiers: Hypertension type: primary hypertension Qualified Code(s): I10 - Essential (primary) hypertension Plan: Patient's blood pressure today in office acceptable. Will continue current dose of antihypertensive medication with goal blood pressure to be below 140/90 (4) LVH (left ventricular hypertrophy): Comment: Left ventricular wall thickness which is increased out of proportion to his hypertension. However there is no evidence of infiltrative disorder such as gracie loidosis. Continue aggressive control of blood pressure at this time. Will follow with echocardiogram on a yearly basis. Code(s): I51.7 - Cardiomegaly Plan: Has been noted to have severe LVH on most recent EKGs and echocardiograms. Cardiology sending for nuclear cardiac testing. Coding Level of Care Code Est Pt Level 4 (84112) Diagnoses Paroxysmal atrial fibrillation I48.0 CAD (coronary artery disease) I25.10 Coronary Disease-Associated Artery/Lesion type: [place] artery [place] vs. transplanted heart: [place] heart Associated angina: without angina HTN (hypertension) I10 Hypertension type: primary hypertension LVH (left ventricular hypertrophy) I51.7 Additional Codes TARIQ-7 Assessment Billing - TARIQ-7 Assessment Tool: TARIQ-7 Assessment 23791 ([id number])
[2023-01-07 09:20] VITALS: BP 120/70; PULSE 85; O2SAT 99; BMI 27.3
== END 2023-01-07 09:44 | disposition home or self-care (01) ==
PROVIDERS: PCP Physician Assistant; Visit Provider Physician Assistant
DX: I48.0 Paroxysmal atrial fibrillation (principal); I25.10 Atherosclerotic heart disease of native coronary artery without angina pectoris; I10 Essential (primary) hypertension; I51.7 Cardiomegaly
CPT/HCPCS: 99214

== ENCOUNTER 2023-05-04 08:08 | Outpatient (AMB) | payer MEDICARE, SELFPAY ==
--- NOTE | 2023-05-04 08:13 | AM.OFFVISNUR ---
Intake Vital Signs 05/04/23 08:14 Height 6 ft Weight 201 lb 2 oz BMI 27.3 Intake Visit Reasons: ekg afib Accompanied by: Self / Same As Patient Allergies No Known Allergies [No Known Allergies*] Allergy (Verified 05/04/23 08:26) Nursing Note EKG patient on Multaq 400 MG BID. Patient reports feeling good no complaints. EKG left on Dr. Lázaro trevizo to review. Office Procedures EKG [id number], Complete Coding CPT Codes EKG - CPT: 83151-[id number], Complete ([id number])
[2023-05-04 08:14] VITALS: BMI 27.3
== END 2023-05-04 08:45 | disposition home or self-care (01) ==
PROVIDERS: PCP Physician Assistant; Visit Provider Internal Medicine Cardiovascular Disease
DX: I44.0 Atrioventricular block, first degree (principal); R94.31 Abnormal electrocardiogram [ECG] [EKG]
CPT/HCPCS: 93010

== ENCOUNTER → 2023-05-04 08:08 | Outpatient (BNVA) | payer MEDICARE, SELFPAY | PROVIDERS: PCP Physician Assistant; Visit Provider Internal Medicine Cardiovascular Disease | DX: I48.91 Unspecified atrial fibrillation (principal); R94.31 Abnormal electrocardiogram [ECG] [EKG]; I44.0 Atrioventricular block, first degree | CPT/HCPCS: 93005 ==

== ENCOUNTER 2023-07-09 06:16 | Outpatient (REF) | payer MEDICARE, SELFPAY ==
[2023-07-12 11:39] LABS: Prot Elec - Albumin 4.4 g/dL (3.8-4.8); Prot Elec - Alpha1 0.3 g/dL (0.2-0.3); Prot Elec - Alpha2 0.7 g/dL (0.5-0.9); Prot Elec - Beta 1 0.4 g/dL (0.4-0.6); Prot Elec - Beta 2 0.5 g/dL (0.2-0.5); Prot Elec - Gamma 1.4 g/dL (0.8-1.7); Prot Elec - Total Protein 7.6 g/dL (6.1-8.1)
[2023-07-13 09:24] LABS: PEU-Protein Creat Ratio Rand 0.071 (0.025-0.148); PEU-Rand. Prot/Creat Ratio 71 mg/g creat (25-148); PEU-Random Ur. Gamma Globulin 0 %; PEU-Random Urine A1 Globulin 0 %; PEU-Random Urine A2 Globulin 0 %; PEU-Random Urine Albumin 100 %; PEU-Random Urine Beta Globulin 0 %; PEU-Random Urine Creatinine 84 mg/dL (20-320); PEU-Random Urine Protein 6 mg/dL (5-25)
[2023-07-15 16:23] LABS: Kappa, Serum 321 mg/dL (176-443); Kappa/Lambda Ratio, Serum 1.47 (1.29-2.55); Lambda, Serum 218 mg/dL (91-240)
== END 2023-07-09 06:17 | disposition home or self-care (01) ==
LOC: HO.LAB 06:16
PROVIDERS: PCP Physician Assistant; Referring Provider Physician Assistant; Visit Provider Internal Medicine Cardiovascular Disease
DX: I51.7 Cardiomegaly (principal)
CPT/HCPCS: 82570; 83883; 84156; 84165; 84166

== ENCOUNTER 2023-07-12 08:15 | Outpatient (AMB) | payer MEDICARE, SELFPAY ==
[2023-07-12 08:48] VITALS: BP 142/74; PULSE 70; O2SAT 99; BMI 26.4
--- NOTE | 2023-07-12 08:48 | MHC.PC.OV ---
Vital Signs 07/12/23 08:48 07/12/23 09:06 Height 6 ft Weight 195 lb BMI 26.4 BP 142/74 H 128/62 Blood Pressure Location Lt brachial Position Sitting Pulse 70 Pulse Source Pulse Oximeter Pulse Oximetry (%) 99 Oxygen Delivery Method Room Air Intake Visit Reasons: f/u AFIB/ HTN Hadoop Admin Required: No Handbag Parts Cutter: Not Required per policy Accompanied by: Self / Same As Patient Allergies No Known Allergies [No Known Allergies*] Allergy (Verified 07/12/23 08:58) Medication List - Last Reconciled 07/12/23 by Jean-Claude Rios PA-C apixaban (Eliquis) 5 mg PO BID dronedarone (Multaq) 400 mg PO BID 90 days lisinopril 20 mg PO DAILY metoprolol succinate ER 50 mg PO DAILY pravastatin 40 mg PO DAILY 90 days Tobacco use date assessed: 07/12/23 Fall risk assessment: No Falls in past year Last assessed Fall Risk: 07/12/23 Dental Screening Dental Screen Date: 07/12/23 Did you have a dental visit in the last 12 months?: No Did you have a dental problem in the last 6 months where you did not have access to dental care?: No Was dental information given to patient?: Patient has dentist HPI f/u AFIB/ HTN HPI Details Patient is a 73 y/o M here today for follow-up visit Patient has a past medical history of hypertension, hyperlipidemia, BPH, coronary artery disease.. ? .. ? CAD: Patient was followed by Dr. Sesay, recent cardiac showing moderate hypertrophic cardiomyopathy.? This will be followed and no? intervention at the same.? Patient denies any issues with chest pain, headaches, dizziness. .. AFib (paroxysmal): Recently found to have AFib, underwent cardiac cardioversion and has been started on anticoagulation. Denies any overt signs of bleeding. Rate / rhythm control with metoprolol and multaq. ECHO- showing LVH and holter has been stable. No evidence of protein deposit disease. [employer] Supervisor sending patient for nuclear cardiac test .. Hypertension:? Blood pressure elevated today in office today. On recheck of his blood pressure much improved. Does not normally check his blood pressure, asymptomatic without any headaches, shortness of breath, chest pain or blurry vision. ? .. ? Impaired fasting blood sugars:? Blood sugars have been much improved. Will recheck fasting blood sugars ? .. ? Elevated PSA: PSA has been elevated over the last several, most recent PSA is 7.7, patient denies any weak stream though does report increase urination at night.? He reports he has seen a urologist many years ago declines my offers to see Urology at this time.? He would like another PSA checked and if still elevated will likely consider finasteride. ? .. ? HLD: Has been stable , no side effects from the statin. Laboratory Tests 04/06/22 06:02 RBC 4.83 Creatinine 0.92 Cholesterol 134 LDL Cholesterol, C alc 70 PFSH Medical History History of COVID-19 Persistent atrial fibrillation Elevated PSA CAD (coronary artery disease) Thoracic aortic aneurysm Mitral regurgitation LVH (left ventricular hypertrophy) HTN (hypertension) HOCM (hypertrophic obstructive cardiomyopathy) Surgical History No pertinent past surgical history Family History Father Bladder cancer Mother ARF (acute renal failure) Social History Housing: House Are you a primary career based intervention coordinator to a significant other at home: No Do you presently have visiting nurse or other home services: No Alcohol intake: current Alcohol intake frequency: holidays/special occasions only Patient Tobacco Use Status: Never used Tobacco e-Cigarette/Vaping Use: Never Used Second Hand Smoke Exposure: No service: No Current occupational status: employed Cognitive needs: No Hearing needs: No Vision needs: Yes Questionnaire PHQ-9 Over the last 2 weeks, how often have you been bothered by any of the following problems? 1. Little interest or pleasure in doing things: not at all 2. Feeling down, depressed, or hopeless: not at all 3. Trouble falling or staying asleep, or sleeping too much: not at all 4. Feeling tired or having little energy: not at all 5. Poor appetite or overeating: not at all 6. Feeling bad about yourself - or that you are a failure or have let yourself or your family down: not at all 7. Trouble concentrating on things, such as reading the newspaper or watching television: not at all 8. Moving or speaking so slowly that other people could have noticed. Or the opposite - being so fidgety or restless that you have been moving around a lot more than usual: not at all 9. Thoughts that you would be better off or of hurting yourself in some way: not at all Total score: 0 Depression Screening Interpretation: Negative Depression Screening Done: Yes 25608 - PHQ-9 Billing: Yes Source: Developed by Drs. Wilberto Gottlieb, Adelita Erazo, Jin Sabillon and colleagues, with an educational loyd from [employer]. Thrive Questionnaire Date Thrive assessed: 07/12/23 I am a: Patient What is your living situation today?: I have a steady place to live Within the past 12 months, did the food you bought not last and you didn't have the money to get more?: Never true Within the past 12 months, did you worry whether your food would run out before you got money to buy more?: Never true Do you have trouble paying for medicines?: No Do you have trouble getting transportation to medical appointments?: No Do you have trouble paying your heating and electricity bill?: No Do you have trouble taking care of your child, family member or friend?: No Do you have trouble with day-to-day activities such as bathing, preparing meals, shopping, managing finances, etc.?: No Are you currently unemployed and looking for a job?: No Are you interested in more education?: No Please select the resources that you would like help with: None THRIVE Score: 0 AUDIT C Alcohol Use Questionnaire (AUDIT-C) 1. How often do you have a drink containing alcohol?: 2-3 times a week 2. How many drinks containing alcohol do you have on a typical day when you are drinking?: 7 to 9 3. How often do you have six or more drinks on one occasion?: Never Total Score: 6 TARIQ-7 AMB Questionnaire TARIQ-7 Date TARIQ - 7 assessed: 07/12/23 Feeling nervous, anxious, or on edge: 0 = Not at all Not being able to stop or control worryin = Not at all Worrying too much about different things: 0 = Not at all Trouble relaxin = Not at all Being so restless that it is hard to sit still: 0 = Not at all Becoming easily annoyed or irritable: 0 = Not at all Feeling afraid as if something awful might happen: 0 = Not at all Total TARIQ-7 score (0-4 normal; 5-9 mild; 10-14 moderate; 15-21 severe): 0 Source: Developed by Drs. Wilberto Gottlieb, Adelita Erazo, Jin Sabillon and colleagues, with an educational loyd from [employer]. TARIQ-7 Assessment Billing TARIQ-7 Assessment Tool: TARIQ-7 Assessment 04295 Review of Systems Const Denies headache(s) Eyes Denies loss of vision ENT Denies vertigo, Denies dizziness, Denies headache(s) and Denies sore throat Card Denies chest pain, Denies leg edema and Denies lightheadedness Resp Denies cough, Denies hemoptysis and Denies wheezing GI Denies abdominal pain, Denies melena, Denies constipation, Denies diarrhea and Denies vomiting Denies dysuria, Denies urinary frequency and Denies urinary urgency Musc Denies arthralgias, Denies joint swelling, Denies numbness and Denies tingling Neuro Denies Abnormal speech present, Denies behavioral changes, Denies vertigo, Denies dizziness, Denies headache(s), Denies loss of vision, Denies memory loss, Denies numbness and Denies tingling Psych Denies anxiety, Denies behavioral changes, Denies depression, Denies memory loss and Denies panic attacks Alvaro/Lymph Denies easy bleeding and Denies easy bruising Aller/Immun Denies wheezing Physical exam (Primary Care) Vital Signs: Last Vital Signs Pulse 70 07/12/23 08:48 BP 128/62 07/12/23 09:06 Pulse Ox 99 07/12/23 08:48 Oxygen Delivery Method Room Air 07/12/23 08:48 BMI result Body Mass Index 26.4 Tobacco/Smoking Status: Tobacco use Status Tobacco use date assessed 07/12/23 07/12/23 08:50 Patient Tobacco Use Status Never used Tobacco 07/12/23 08:50 e-Cigarette/Vaping Use Never Used 07/12/23 08:50 PHQ-9: PHQ-9 Score PHQ-9: Total score 0 07/12/23 09:01 Depression Screening Interpretation: Negative Thrive Assessment: Date of Thrive Assessment Date Thrive assessed 01/07/23 07/12/23 08:50 Const General: healthy appearing, no acute distress, alert and awake Nutritional Appearance: well nourished Orientation/consciousness: oriented to person, oriented to place and oriented to time HENMT Ears: TM's normal bilaterally General nose exam: Normal nasal mucous membranes and turbinates present Eyes Conjunctivae: conjunctivae normal Sclerae: sclerae normal Pupils: Equal, round and reactive pupils present Neck Neck: Yes no lymphadenopathy and Yes no JVD Thyroid: Thyroid normal Carotids: no bruits Resp Effort & Inspection: normal respiratory effort and not tachypneic Auscultation: no crackles, no rales, no rhonchi and no wheezes Cardio Rate: regular rate Rhythm: regular rhythm Heart sounds: no murmurs and normal S1 and S2 GI Palpation (GI): Soft to palpation, nontender, no hepatomegaly and no splenomegaly Auscultation: normal bowel sounds Skin General skin exam: no rashes or lesions noted and dry skin Neuro General: oriented to person, oriented to place and oriented to time Cranial nerves: Yes Equal, round and reactive pupils present Speech: No Abnormal speech present Gait exam (Neuro): Normal gait present Motor exam (neuro): no tremor noted Extrem Right upper extremity: full ROM Left upper extremity: full ROM Right lower extremity: full ROM; no edema Left lower extremity: full ROM; no edema Psych Mental Status: mental status grossly normal Speech and movement: Normal speech and movement present Affect: normal affect Attitude: cooperative Thought process: Normal thought process present Assessment and Plan Assessment & Plan (1) Paroxysmal atrial fibrillation: Code(s): I48.0 - Paroxysmal atrial fibrillation Plan: Patient now anticoagulated with Eliquis and on rate control and rhythm control. Reports no palpitations, dizziness or headaches. Continues follow-up with his hospital unit coordinator on annual basis. (2) CAD (coronary artery disease): Code(s): I25.10 - Atherosclerotic heart disease of [place] coronary artery without angina pectoris Qualifiers: Associated angina: without angina Coronary Disease-Associated Artery/Lesion type: [place] artery [place] vs. transplanted heart: [place] heart Qualified Code(s): I25.10 - Atherosclerotic heart disease of [place] coronary artery without angina pectoris Plan: Continues on statin therapy, most recent lipid panel showing appropriate total cholesterol and LDL. Goal LDL to remain below 70. (3) HTN (hypertension): Code(s): I10 - Essential (primary) hypertension Qualifiers: Hypertension type: primary hypertension Qualified Code(s): I10 - Essential (primary) hypertension Plan: Patient's blood pressure today in office acceptable. Will continue current dose of antihypertensive medication with goal blood pressure to be below 140/90 (4) Thoracic aortic aneurysm: Code(s): I71.2 - Thoracic aortic aneurysm, without rupture Qualifiers: Thoracic aorta location: ascending aorta Presence of rupture: without rupture Qualified Code(s): I71.21 - Aneurysm of the ascending aorta, without rupture Plan: Followed by cardiology will be getting echocardiograms annually Orders: Orders Microalbumin, Random (w Creat) Today I10 - Essential (primary) hypertension Prostate Specific Antigen Scr Today I25.10 - Atherosclerotic heart disease of [place] coronary artery without angina pectoris, Z12.5 - Encounter for screening for malignant neoplasm of prostate Lipid Panel Today I25.10 - Atherosclerotic heart disease of [place] coronary artery without angina pectoris Comprehensive [place]. Panel Fast Today I25.10 - Atherosclerotic heart disease of [place] coronary artery without angina pectoris Complete Blood Count no Diff Today I48.0 - Paroxysmal atrial fibrillation Coding Level of Care Code Est Pt Level 4 (42394) Diagnoses Paroxysmal atrial fibrillation I48.0 Coronary artery disease involving [place] coronary artery of [place] heart without angina pectoris I25.10 Associated angina: without angina Coronary Disease-Associated Artery/Lesion type: [place] artery [place] vs. transplanted heart: [place] heart Primary hypertension I10 Hypertension type: primary hypertension Aneurysm of ascending aorta without rupture I71.21 Thoracic aorta location: ascending aorta Presence of rupture: without rupture Additional Codes TARIQ-7 Assessment Billing - TARIQ-7 Assessment Tool: TARIQ-7 Assessment 58134 ([id number])
[2023-07-12 09:06] VITALS: BP 128/62
== END 2023-07-12 09:14 | disposition home or self-care (01) ==
PROVIDERS: PCP Physician Assistant; Visit Provider Physician Assistant
DX: I48.0 Paroxysmal atrial fibrillation (principal); I25.10 Atherosclerotic heart disease of native coronary artery without angina pectoris; I10 Essential (primary) hypertension; I71.21 Aneurysm of the ascending aorta, without rupture
CPT/HCPCS: 99214

== ENCOUNTER → 2023-07-15 08:06 | Outpatient (BNVA) | payer MEDICARE, SELFPAY | PROVIDERS: PCP Physician Assistant; Visit Provider Internal Medicine Cardiovascular Disease ==

== ENCOUNTER → 2023-10-12 08:04 | Outpatient (BNVA) | payer MEDICARE, SELFPAY | PROVIDERS: PCP Physician Assistant; Visit Provider Internal Medicine Cardiovascular Disease ==

== ENCOUNTER 2023-12-30 08:32 | Outpatient (AMB) | payer MEDICARE, SELFPAY ==
--- NOTE | 2023-12-30 08:46 | MHC.OFFVIS ---
Vital Signs 12/30/23 08:47 Height 6 ft Weight 194 lb 0.108 oz BMI 26.3 BP 120/78 Blood Pressure Location Lt brachial Position Sitting Pulse 71 Intake Visit Reasons: 1 YEAR FOLLOW UP W/ EKG Intake Note: 1 year follow-up with ekg feeling good Allergies No Known Allergies [No Known Allergies*] Allergy (Verified 07/12/23 08:58) Medication List - Last Reconciled 12/30/23 by Matias Sesay MD apixaban (Eliquis) 5 mg PO BID dronedarone (Multaq) 400 mg PO BID 90 days lisinopril 20 mg PO DAILY metoprolol succinate ER 50 mg PO DAILY pravastatin 40 mg PO DAILY 90 days HPI Comments Details: [place] comes for follow-up. He said he has been doing very well he has been participating in labor intensive work and walking 3-4 miles a day without any symptoms. He also denies any exertional chest pain or shortness of breath. Denies any prolonged palpitation irregular heartbeat. Takes all his medications. No bleeding issues or neurologic events. Blood pressures been generally well controlled. No heart failure symptoms. [facility] Medical History History of COVID-19 Persistent atrial fibrillation Elevated PSA CAD (coronary artery disease) Thoracic aortic aneurysm Mitral regurgitation LVH (left ventricular hypertrophy) HTN (hypertension) HOCM (hypertrophic obstructive cardiomyopathy) Surgical History No pertinent past surgical history Family History Father Bladder cancer Mother ARF (acute renal failure) Social History Housing: House Are you a primary urgent care physician assistant to a significant other at home: No Do you presently have visiting nurse or other home services: No Alcohol intake: current Alcohol intake frequency: holidays/special occasions only Patient Tobacco Use Status: Never used Tobacco e-Cigarette/Vaping Use: Never Used Second Hand Smoke Exposure: No service: No Current occupational status: employed Cognitive needs: No Hearing needs: No Vision needs: Yes Review of Systems Const Denies chills, Denies fatigue, Denies fever(s), Denies frequent falls, Denies weakness, Denies weight gain and Denies weight loss ENT Denies dizziness Card Denies chest pain, Denies leg edema, Denies lightheadedness, Denies palpitations, Denies dyspnea, Denies dyspnea on exertion, Denies orthopnea and Denies other (loss of consciousness) Resp Denies cough, Denies dyspnea and Denies dyspnea on exertion GI Denies hematochezia and Denies change in stool character Musc Denies abnormal gait, Denies muscle weakness, Denies numbness, Denies radiating pain into limb and Denies tingling Neuro Denies abnormal gait, Denies dizziness, Denies frequent falls, Denies numbness, Denies tingling and Denies weakness Endo Denies fatigue and Denies palpitations Physical Exam Vital Signs: Last Vital Signs Pulse 71 12/30/23 08:47 BP 120/78 12/30/23 08:47 BMI result Body Mass Index 26.3 Const General: cooperative, comfortable, no acute distress, alert, awake, Physically active and well groomed Nutritional Appearance: overweight Orientation/consciousness: patient oriented x3 Limitations: no limitations Neck Neck: Yes trachea midline, Yes supple and Yes no JVD Resp Effort & Inspection: normal respiratory effort Auscultation: clear to auscultation bilaterally Cardio Jugular venous distension: no JVD Palpation: normal PMI Rate: regular rate Rhythm: regular rhythm Heart sounds: S1 normal heart sound present, S2 normal heart sound present, no click, no gallops and Murmur heart sound present systolic early GI Auscultation: normal bowel sounds Skin General skin exam: no rashes or lesions noted Neuro General: patient oriented x3 and no focal motor deficits Extrem General: Yes no clubbing, cyanosis or edema Psych Appearance: grossly normal Office Procedures EKG Details: EKG shows normal sinus rhythm with first-degree AV block [place] [id number], Complete Assessment & Plan Assessment & Plan (1) Paroxysmal atrial fibrillation: Code(s): I48.0 - Paroxysmal atrial fibrillation Category: Medical Plan: Highly symptomatic paroxysmal atrial fibrillation which is doing currently very well on rhythm control approach with Multaq. He has significant left atrial enlargement makes him at risk for redevelopment of atrial fibrillation. This was discussed with him. Symptoms of atrial fibrillation was discussed. Continue Multaq therapy. Will need EKGs every 3 months. Continue full oral anticoagulation, currently on Eliquis 5 mg b.i.d.. Semi annual renal function test should be pursued. Continue aggressive blood pressure control. (2) HOCM (hypertrophic obstructive cardiomyopathy): Code(s): I42.1 - Obstructive hypertrophic cardiomyopathy Category: Medical Plan: Hypertrophic cardiomyopathy with LVH out of proportion to his hypertension which has remained well controlled for many years. Question infiltrative disorder. Have discussed workup for the same. Although no PYP scan has been performed. Will suggest the same when he comes back. Repeat echocardiogram in near future. Continue aggressive blood pressure control which is currently well optimized. Target goal blood pressure less than 130/84. No signs or symptoms of heart failure. (3) Thoracic aortic aneurysm: Code(s): I71.2 - Thoracic aortic aneurysm, without rupture Category: Medical Qualifiers: Thoracic aorta location: ascending aorta Presence of rupture: without rupture Qualified Code(s): I71.21 - Aneurysm of the ascending aorta, without rupture Plan: Thoracic aortic aneurysm which has remained stable. Continue to monitor annually by echocardiogram. Continue aggressive blood pressure control. Advised to avoid sudden strenuous isometric exercise. Will follow up in the clinic in 1 year's time, sooner p.r.n.. EKGs every 3 months. Thank you for allowing me to partake in his care Orders: Orders CA echo transthoracic complete Today I42.1 - Obstructive hypertrophic cardiomyopathy Coding Level of Care Code Est Pt Level 4 (89176) Diagnoses Paroxysmal atrial fibrillation I48.0 HOCM (hypertrophic obstructive cardiomyopathy) I42.1 Aneurysm of ascending aorta without rupture I71.21 Thoracic aorta location: ascending aorta Presence of rupture: without rupture CPT Codes EKG - CPT: 68932-[id number], Complete ([id number])
[2023-12-30 08:47] VITALS: BP 120/78; PULSE 71; BMI 26.3
== END 2023-12-30 09:04 | disposition home or self-care (01) ==
PROVIDERS: PCP Physician Assistant; Visit Provider Internal Medicine Cardiovascular Disease
DX: I48.0 Paroxysmal atrial fibrillation (principal); I42.1 Obstructive hypertrophic cardiomyopathy; I71.21 Aneurysm of the ascending aorta, without rupture
CPT/HCPCS: 93010; 99214

== ENCOUNTER → 2023-12-30 08:32 | Outpatient (BNVA) | payer MEDICARE, SELFPAY | PROVIDERS: PCP Physician Assistant; Visit Provider Internal Medicine Cardiovascular Disease | DX: I42.1 Obstructive hypertrophic cardiomyopathy (principal); I48.0 Paroxysmal atrial fibrillation; I71.21 Aneurysm of the ascending aorta, without rupture | CPT/HCPCS: 93005; 99212 ==

== ENCOUNTER → 2024-07-11 08:05 | Outpatient (BNVA) | payer MEDICARE, SELFPAY | PROVIDERS: PCP Physician Assistant; Visit Provider Internal Medicine Cardiovascular Disease ==

== ENCOUNTER 2024-08-09 06:24 | Outpatient (REF) | payer MEDICARE, SELFPAY ==
[2024-08-09 07:12] LABS: Hematocrit 45.8 % (42.0-52.0); Hemoglobin 15.5 g/dl (14.0-18.0); Mean Corpuscular HGB Conc 33.8 g/dl (31.0-36.0); Mean Corpuscular Hemoglobin 32.3 pg (27.0-33.0); Mean Corpuscular Volume 95.4 fL (80.0-98.0); Mean Platelet Volume 10.5 fL (9.4-12.4); Platelet Count 245 X10*3/uL (160-400); Red Cell Distribution Width 14.3 % (11.0-16.0); White Blood Count 4.2 X10*3/uL (4.8-10.8)
[2024-08-09 07:34] LABS: Alanine Aminotransferase 17 U/L (0-40); Albumin Level 4.3 g/dL (3.5-5.0); Alkaline Phosphatase 102 U/L (39-117); Anion Gap 14 (12-20); Aspartate Amino Transferase 23 U/L (5-37); Bilirubin Total 0.6 mg/dL (0.0-1.0); Blood Urea Nitrogen 10 mg/dL (9-16); Calcium 9.1 mg/dL (8.4-10.2); Carbon Dioxide 23 mmol/L (22-29); Chloride 107 mmol/L (96-108); Cholesterol 154 mg/dL (<200); Estimated Glomerular Filt Rate > 60; Glucose Fasting 106 mg/dL (60-99); HDL Cholesterol 67 mg/dL (>40); LDL Cholesterol Calculated 78 mg/dL (<100); Potassium 4.5 mmol/L (3.3-5.1); Sodium 139 mmol/L (135-145); Total Protein 8.1 g/dL (6.5-8.0); Triglycerides 47 mg/dL (<150)
[2024-08-09 07:58] LABS: Prostate Specific Antigen Scr 7.07 ng/mL (<0.05-4.0)
== END 2024-08-09 06:25 | disposition home or self-care (01) ==
LOC: HO.LAB 06:24
PROVIDERS: PCP Physician Assistant; Visit Provider Physician Assistant
DX: I25.10 Atherosclerotic heart disease of native coronary artery without angina pectoris (principal); Z12.5 Encounter for screening for malignant neoplasm of prostate
CPT/HCPCS: 36415; 80053; 80061; 84153; 85027

== ENCOUNTER → 2024-08-10 08:08 | Outpatient (BNVA) | payer MEDICARE, SELFPAY | PROVIDERS: PCP Physician Assistant; Visit Provider Physician Assistant | DX: I48.0 Paroxysmal atrial fibrillation (principal); I25.10 Atherosclerotic heart disease of native coronary artery without angina pectoris; I10 Essential (primary) hypertension; R97.20 Elevated prostate specific antigen [PSA]; I42.1 Obstructive hypertrophic cardiomyopathy; R73.09 Other abnormal glucose | CPT/HCPCS: 96127; 99212 ==

== ENCOUNTER 2024-08-10 08:21 | Outpatient (AMB) | payer MEDICARE, SELFPAY ==
--- NOTE | 2024-08-10 08:28 | MHC.PC.OV ---
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 Required: No Accompanied by: Self / Same As Patient Allergies No Known Allergies [No Known Allergies*] Allergy (Verified 08/10/24 08:39) Medication List - Last Reconciled 08/10/24 by Jean-Claude Rios PA-C apixaban (Eliquis) 5 mg PO BID 90 days dronedarone (Multaq) 400 mg PO BID lisinopril 20 mg PO DAILY metoprolol succinate ER 50 mg PO DAILY pravastatin 40 mg PO DAILY 90 days Tobacco use date assessed: 08/10/24 Fall risk assessment: 1 Fall in past year Last assessed Fall Risk: 08/10/24 Dental Screening Dental Screen Date: 08/10/24 Did you have a dental visit in the last 12 months?: No Did you have a dental problem in the last 6 months where you did not have access to dental care?: No Was dental information given to patient?: Patient has dentist HPI FollowUpAFIB/HNT/CAD HPI Details Patient is a 74 y/o M here today for follow-up visit Patient has a past medical history of hypertension, hyperlipidemia, BPH, coronary artery disease.. ? .. ? CAD: Patient was followed by Dr. Sesay, recent cardiac showing moderate hypertrophic cardiomyopathy.? This will be followed and no? intervention at the same.? Patient denies any issues with chest pain, headaches, dizziness. .. AFib (paroxysmal): Recently found to have AFib, underwent cardiac cardioversion and has been started on anticoagulation. Denies any overt signs of bleeding. Rate / rhythm control with metoprolol and multaq. ECHO- showing LVH and holter has been stable. No evidence of protein deposit disease. 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 Otherwise patient is asymptomatic without any chest discomfort, dizziness or heart palpitations. .. Hypertension:? Blood pressure acceptable today in office. On recheck of his blood pressure much improved. Does not normally check his blood pressure, asymptomatic without any headaches, shortness of breath, chest pain or blurry vision. ? .. ? Impaired fasting blood sugars:? Patient's blood sugars slightly elevated at 106. He will work on low carbohydrate diet. Will recheck fasting blood sugars ? .. ? Elevated PSA: PSA has been elevated over the last several, most recent PSA is 7.7, patient denies any weak stream though does report increase urination at night.? He reports he has seen a urologist many years ago declines my offers to see Urology at this time.? He would like another PSA checked and if still elevated will likely consider finasteride. ? .. ? HLD: Has been stable , no side effects from the statin. Laboratory Tests 04/06/22 08/09/24 06:02 06:34 WBC 4.2 L RBC 4.80 Fasting Glucose 96 106 H Cholesterol 154 LDL Cholesterol, C alc 78 PSA Screen 7.07 H [facility] Medical History Elevated PSA History of COVID-19 Persistent atrial fibrillation CAD (coronary artery disease) Thoracic aortic aneurysm Mitral regurgitation LVH (left ventricular hypertrophy) HTN (hypertension) HOCM (hypertrophic obstructive cardiomyopathy) Surgical History No pertinent past surgical history Family History Father Bladder cancer Mother ARF (acute renal failure) Social History Housing: House Are you a primary residential care facility manager to a significant other at home: No Do you presently have visiting nurse or other home services: No Alcohol intake: current Alcohol intake frequency: holidays/special occasions only Patient Tobacco Use Status: Never used Tobacco e-Cigarette/Vaping Use: Never Used Second Hand Smoke Exposure: No service: No Current occupational status: employed Current occupational exposures/hazards: No Cognitive needs: No Hearing needs: No Vision needs: Yes Questionnaire PHQ-9 Over the last 2 weeks, how often have you been bothered by any of the following problems? 1. Little interest or pleasure in doing things: not at all 2. Feeling down, depressed, or hopeless: not at all 3. Trouble falling or staying asleep, or sleeping too much: not at all 4. Feeling tired or having little energy: not at all 5. Poor appetite or overeating: not at all 6. Feeling bad about yourself - or that you are a failure or have let yourself or your family down: not at all 7. Trouble concentrating on things, such as reading the newspaper or watching television: not at all 8. Moving or speaking so slowly that other people could have noticed. Or the opposite - being so fidgety or restless that you have been moving around a lot more than usual: not at all 9. Thoughts that you would be better off or of hurting yourself in some way: not at all Total score: 0 Depression Screening Interpretation: Negative Depression Screening Done: Yes 27466 - PHQ-9 Billing: Yes Source: Developed by Drs. Wilberto Gottlieb, Adelita Erazo, Jin Sabillon and colleagues, with an educational loyd from [employer]. Thrive Questionnaire Date Thrive assessed: 08/10/24 I am a: Patient What is your living situation today?: I have a steady place to live Within the past 12 months, did the food you bought not last and you didn't have the money to get more?: Never true Within the past 12 months, did you worry whether your food would run out before you got money to buy more?: Never true Do you have trouble paying for medicines?: No Do you have trouble getting transportation to medical appointments?: No Do you have trouble paying your heating and electricity bill?: No Do you have trouble taking care of your child, family member or friend?: No Do you have trouble with day-to-day activities such as bathing, preparing meals, shopping, managing finances, etc.?: No Are you currently unemployed and looking for a job?: No Are you interested in more education?: No Please select the resources that you would like help with: None Currently or been in a relationship where the following occur: No concerns reported THRIVE Score: 0 AUDIT C Alcohol Use Questionnaire (AUDIT-C) 1. How often do you have a drink containing alcohol?: 2-3 times a week 2. How many drinks containing alcohol do you have on a typical day when you are drinking?: 7 to 9 3. How often do you have six or more drinks on one occasion?: Never Total Score: 6 TARIQ-7 AMB Questionnaire TARIQ-7 Date TARIQ - 7 assessed: 08/10/24 Feeling nervous, anxious, or on edge: 0 = Not at all Not being able to stop or control worryin = Not at all Worrying too much about different things: 0 = Not at all Trouble relaxin = Not at all Being so restless that it is hard to sit still: 0 = Not at all Becoming easily annoyed or irritable: 0 = Not at all Feeling afraid as if something awful might happen: 0 = Not at all Total TARIQ-7 score (0-4 normal; 5-9 mild; 10-14 moderate; 15-21 severe): 0 Source: Developed by Drs. Wilberto Gottlieb, Adelita Erazo, Jin Sabillon and colleagues, with an educational loyd from [employer]. TARIQ-7 Assessment Billing TARIQ-7 Assessment Tool: TARIQ-7 Assessment 59964 Review of Systems Const Denies headache(s) Eyes Denies loss of vision ENT Denies vertigo, Denies dizziness, Denies headache(s) and Denies sore throat Card Denies chest pain, Denies leg edema and Denies lightheadedness Resp Denies cough, Denies hemoptysis and Denies wheezing GI Denies abdominal pain, Denies melena, Denies constipation, Denies diarrhea and Denies vomiting Denies dysuria, Denies urinary frequency and Denies urinary urgency Musc Denies arthralgias, Denies joint swelling, Denies numbness and Denies tingling Neuro Denies Abnormal speech present, Denies behavioral changes, Denies vertigo, Denies dizziness, Denies headache(s), Denies loss of vision, Denies memory loss, Denies numbness and Denies tingling Psych Denies anxiety, Denies behavioral changes, Denies depression, Denies memory loss and Denies panic attacks Alvaro/Lymph Denies easy bleeding and Denies easy bruising Aller/Immun Denies wheezing Physical exam (Primary Care) Vital Signs: Last Vital Signs Pulse 80 08/10/24 08:29 BP 130/72 08/10/24 08:29 Pulse Ox 97 08/10/24 08:29 Oxygen Delivery Method Room Air 08/10/24 08:29 BMI result Body Mass Index 27.3 Tobacco/Smoking Status: Tobacco use Status Tobacco use date assessed 08/10/24 08/10/24 08:33 Patient Tobacco Use Status Never used Tobacco 08/10/24 08:33 e-Cigarette/Vaping Use Never Used 08/10/24 08:33 PHQ-9: PHQ-9 Score PHQ-9: Total score 0 08/10/24 08:33 Depression Screening Interpretation: Negative Thrive Assessment: Date of Thrive Assessment Date Thrive assessed 08/10/24 08/10/24 08:33 Currently or been in a relationship where the following occur: No concerns reported Const General: healthy appearing, no acute distress, alert and awake Nutritional Appearance: well nourished Orientation/consciousness: oriented to person, oriented to place and oriented to time HENMT Ears: TM's normal bilaterally General nose exam: Normal nasal mucous membranes and turbinates present Eyes Conjunctivae: conjunctivae normal Sclerae: sclerae normal Pupils: Equal, round and reactive pupils present Neck Neck: Yes no lymphadenopathy and Yes no JVD Thyroid: Thyroid normal Carotids: no bruits Resp Effort & Inspection: normal respiratory effort and not tachypneic Auscultation: no crackles, no rales, no rhonchi and no wheezes Cardio Rate: regular rate Rhythm: regular rhythm Heart sounds: no murmurs and normal S1 and S2 GI Palpation (GI): Soft to palpation, nontender, no hepatomegaly and no splenomegaly Auscultation: normal bowel sounds Skin General skin exam: no rashes or lesions noted and dry skin Neuro General: oriented to person, oriented to place and oriented to time Cranial nerves: Yes Equal, round and reactive pupils present Speech: No Abnormal speech present Gait exam (Neuro): Normal gait present Motor exam (neuro): no tremor noted Extrem Right upper extremity: full ROM Left upper extremity: full ROM Right lower extremity: full ROM; no edema Left lower extremity: full ROM; no edema Psych Mental Status: mental status grossly normal Speech and movement: Normal speech and movement present Affect: normal affect Attitude: cooperative Thought process: Normal thought process present Coding Level of Care Code Est Pt Level 4 (59774) Diagnoses Paroxysmal atrial fibrillation I48.0 Coronary artery disease involving [place] coronary artery of [place] heart without angina pectoris I25.10 Coronary Disease-Associated Artery/Lesion type: [place] artery [place] vs. transplanted heart: [place] heart Associated angina: without angina Primary hypertension I10 Hypertension type: primary hypertension Elevated PSA R97.20 HOCM (hypertrophic obstructive cardiomyopathy) I42.1 Impaired glucose metabolism R73.09 Additional Codes PHQ-9 - 22672 - PHQ-9 Billing: Yes ([id number]) TARIQ-7 Assessment Billing - TARIQ-7 Assessment Tool: TARIQ-7 Assessment 99885 ([id number]) Assessment & Plan Assessment & Plan (1) Paroxysmal atrial fibrillation: Code(s): I48.0 - Paroxysmal atrial fibrillation Category: Medical Plan: Patient continues to follow cardiology. Continues on apixaban 5 mg b.i.d. without any overt signs of bleeding. He is under rate and rhythm control with Multaq and metoprolol with good effect. He is concerned about the bush a Multaq and is looking around for cheaper medication. (2) CAD (coronary artery disease): Code(s): I25.10 - Atherosclerotic heart disease of [place] coronary artery without angina pectoris Category: Medical Qualifiers: Coronary Disease-Associated Artery/Lesion type: [place] artery [place] vs. transplanted heart: [place] heart Associated angina: without angina Qualified Code(s): I25.10 - Atherosclerotic heart disease of [place] coronary artery without angina pectoris Plan: Patient's most recent lipid panel showing good control of his total cholesterol. LDL slightly suboptimal at 78. Goal will continue to work on low cholesterol diet. (3) HTN (hypertension): Code(s): I10 - Essential (primary) hypertension Category: Medical Qualifiers: Hypertension type: primary hypertension Qualified Code(s): I10 - Essential (primary) hypertension Plan: Patient's blood pressure acceptable today in office. Will continue current dose of lisinopril and metoprolol with goal blood pressure to be below 140/90 (4) Elevated PSA: Code(s): R97.20 - Elevated prostate specific antigen [PSA] Category: Medical Plan: As per HPI patient continues to an elevated PSA. We did discuss perhaps starting finasteride help reduce size of prostate. He does admit to some nocturia though attributes this to lot of water intake we also discussed seeing a urologist for further evaluation though he declines at this time. Will continue follow PSA. (5) HOCM (hypertrophic obstructive cardiomyopathy): Code(s): I42.1 - Obstructive hypertrophic cardiomyopathy Category: Medical Plan: Continues to follow cardiology and gets regular echocardiograms. (6) Impaired glucose metabolism: Code(s): R73.09 - Other abnormal glucose Category: Medical Plan: Most recent fasting blood sugar 106. Will work on low carbohydrate diet. Orders: Orders Complete Blood Count no Diff Today I48.0 - Paroxysmal atrial fibrillation Hemoglobin A1c Today R73.09 - Other abnormal glucose Comprehensive [place]. Panel Fast Today I48.0 - Paroxysmal atrial fibrillation Prostate Specific Antigen Scr Today R97.20 - Elevated prostate specific antigen [PSA], Z12.5 - Encounter for screening for malignant neoplasm of prostate Lipid Panel Today I25.10 - Atherosclerotic heart disease of [place] coronary artery without angina pectoris Patient Instructions: Goal: Blood pressure to remain below 140/90 LDL to be below 70 Barriers: Adherence to physical activity and healthy eating habits
[2024-08-10 08:29] VITALS: BP 130/72; PULSE 80; O2SAT 97; BMI 27.3
== END 2024-08-10 09:00 | disposition home or self-care (01) ==
PROVIDERS: PCP Physician Assistant; Visit Provider Physician Assistant
DX: I48.0 Paroxysmal atrial fibrillation (principal); I42.1 Obstructive hypertrophic cardiomyopathy; I25.10 Atherosclerotic heart disease of native coronary artery without angina pectoris; I10 Essential (primary) hypertension; R97.20 Elevated prostate specific antigen [PSA]; R73.09 Other abnormal glucose

== ENCOUNTER 2025-02-12 06:08 | Outpatient (REF) | payer MEDICARE, SELFPAY ==
[2025-02-12 07:24] LABS: Hematocrit 46.8 % (42.0-52.0); Hemoglobin 16.2 g/dl (14.0-18.0); Mean Corpuscular HGB Conc 34.6 g/dl (31.0-36.0); Mean Corpuscular Hemoglobin 32.8 pg (27.0-33.0); Mean Corpuscular Volume 94.7 fL (80.0-98.0); NRBC Abs Auto 0.000 X10*3/uL (0.0-0.012); NRBC Pct Auto 0.0 /100WBC (0.0-0.2); Platelet Count 238 X10*3/uL (160-400); Red Blood Count 4.94 X10*6/uL (4.60-5.80); White Blood Count 10.6 X10*3/uL (4.8-10.8)
[2025-02-12 07:33] LABS: Hemoglobin A1C 149.1521 umol/L; Total Hemoglobin (HGBA1C) 4118.9606 umol/L
[2025-02-12 08:04] LABS: Alanine Aminotransferase 18 U/L (0-40); Albumin Level 4.7 g/dL (3.5-5.0); Alkaline Phosphatase 81 U/L (39-117); Anion Gap 16 (12-20); Aspartate Amino Transferase 22 U/L (5-37); Blood Urea Nitrogen 8 mg/dL (9-16); Calcium 9.5 mg/dL (8.4-10.2); Carbon Dioxide 24 mmol/L (22-29); Chloride 103 mmol/L (96-108); Cholesterol 148 mg/dL (<200); Estimated Glomerular Filt Rate > 60; HDL Cholesterol 69 mg/dL (>40); Potassium 4.0 mmol/L (3.3-5.1); Sodium 139 mmol/L (135-145); Total Protein 8.1 g/dL (6.5-8.0); Triglycerides 55 mg/dL (<150)
== END 2025-02-12 06:09 | disposition home or self-care (01) ==
LOC: HO.LAB 06:08
PROVIDERS: PCP Physician Assistant; Visit Provider Physician Assistant
DX: Z12.5 Encounter for screening for malignant neoplasm of prostate (principal); R97.20 Elevated prostate specific antigen [PSA]; K04.7 Periapical abscess without sinus; I25.10 Atherosclerotic heart disease of native coronary artery without angina pectoris; I48.0 Paroxysmal atrial fibrillation; R73.09 Other abnormal glucose
CPT/HCPCS: 36415; 80053; 80061; 83036; 84153; 85027; 99212

== ENCOUNTER 2025-02-12 11:22 | Outpatient (AMB) | payer MEDICARE, SELFPAY ==
[2025-02-12 12:37] VITALS: BP 148/94; PULSE 101; RESP 16; TEMP 37.8; O2SAT 97; BMI 27.0
--- NOTE | 2025-02-12 12:37 | AM.OFFWIN_ITS ---
Intake Vital Signs 3 02/12/25 12:37 Height 6 ft Weight 199 lb BMI 27.0 BP 148/94 H Blood Pressure Location Lt brachial Position Sitting Respiration 16 Pulse 101 H Pulse Source Pulse Oximeter Temp 100.1 F Temp Source Oral Pulse Oximetry (%) 97 Oxygen Delivery Method Room Air Intake Visit Reasons: EP infection on right side of mouth/ head aches Patient Tobacco Use Status: Never used Tobacco Allergies No Known Allergies (No Known Allergies*) Allergy (Verified 02/12/25 12:39) HPI HPI Comments 2 History of Present Illness0 Details 74 y/o Male Patient who presents to the walk in clinic with c/o left sided Facial swelling due to Dental Infection since Wednesday. Pt reports having Poor dentition and does not receive routinely Dental Care. Denies Tooth Ache but reports Facial swelling and pain. Denies Headaches, Fevers or chills. [facility] Medical History (Updated 02/12/25 @ 13:22 by Sonya Smith NP) Dental abscess Elevated PSA History of COVID-19 Persistent atrial fibrillation CAD (coronary artery disease) Thoracic aortic aneurysm Mitral regurgitation LVH (left ventricular hypertrophy) HTN (hypertension) HOCM (hypertrophic obstructive cardiomyopathy) Surgical History No pertinent past surgical history Family History Father Bladder cancer Mother ARF (acute renal failure) Social History Housing: House Are you a primary cna caregiver to a significant other at home: No Do you presently have visiting nurse or other home services: No Alcohol intake: current Alcohol intake frequency: holidays/special occasions only Patient Tobacco Use Status: Never used Tobacco e-Cigarette/Vaping Use: Never Used Second Hand Smoke Exposure: No service: No Current occupational status: employed Current occupational exposures/hazards: No Cognitive needs: No Hearing needs: No Vision needs: Yes Review of Systems Const All systems reviewed & are unremarkable except as noted in HPI and below Physical Exam Vital Signs: Last Vital Signs Temp 100.1 F 02/12/25 12:37 Pulse 101 H 02/12/25 12:37 Resp 16 02/12/25 12:37 BP 148/94 H 02/12/25 12:37 Pulse Ox 97 02/12/25 12:37 Oxygen Delivery Method Room Air 02/12/25 12:37 BMI result Body Mass Index 27.0 Const General: no acute distress Nutritional Appearance: obese Orientation/consciousness: patient oriented x3 HEENT Head: Yes normocephalic Ears: external ears normal General nose exam: Normal external nose present Nose image: 2 1. Facial Swelling, erythematous and TTP. Face and sinus: Yes erythema and Yes sinus tenderness Mouth: tongue normal and moist mucous membranes Teeth and gingiva: caries, multiple restorations and poor dentition Throat: Yes uvula midline Resp Effort & Inspection: normal respiratory effort Auscultation: clear to auscultation bilaterally Cardio Heart sounds: S1 normal heart sound present and S2 normal heart sound present Neuro General: patient oriented x3 Assessment & Plan Assessment & Plan (1) Dental abscess: Code(s): K04.7 - Periapical abscess without sinus Plan: Advised to find a dentist MALORIE for possible extractions. Ordered Amoxicillin for 10 days. Acetaminophen for pain relief Cold compress to help with swelling. Medications: New 2 amoxicillin-pot clavulanate 875-125 mg 1 tab PO BID 20 tabs 0RF 10 days K04.7 - Periapical abscess without sinus Coding Level of Care Code Est Pt Level 4 (02586) Diagnoses Dental abscess K04.7 Time Spent (min) 20
== END 2025-02-12 13:48 | disposition home or self-care (01) ==
PROVIDERS: PCP Physician Assistant; Visit Provider Nurse Practitioner Family
DX: K04.7 Periapical abscess without sinus (principal)

== ENCOUNTER 2025-02-14 07:56 | Outpatient (AMB) | payer MEDICARE, SELFPAY ==
--- NOTE | 2025-02-14 08:07 | A.OFFPC_ITS ---
Vital Signs 02/14/25 08:08 Height 6 ft Weight 199 lb 6 oz BMI 27.0 BP 132/62 Blood Pressure Location Lt brachial Position Sitting Pulse 101 H Pulse Source Pulse Oximeter Temp 97.3 F Temp Source Temporal Artery Scan Pulse Oximetry (%) 96 Oxygen Delivery Method Room Air Intake Visit Reasons: PE Intake Note: Patient is here today for a physical. Practice Management Consultant Required: No Mannequin Decorator: Not Required per policy Accompanied by: Self / Same As Patient Allergies No Known Allergies (No Known Allergies*) Allergy (Verified 02/14/25 08:15) Medication List - Last Reconciled 02/14/25 by Jean-Claude Rios PA-C amoxicillin-pot clavulanate 875-125 mg 1 tab PO BID 10 days apixaban (Eliquis) 5 mg PO BID 90 days dronedarone (Multaq) 400 mg PO BID lisinopril 20 mg PO DAILY metoprolol succinate ER 50 mg PO DAILY pravastatin 40 mg PO DAILY 90 days Tobacco use date assessed: 02/14/25 Fall risk assessment: No Falls in past year Last assessed Fall Risk: 02/14/25 Dental Screening Dental Screen Date: 08/10/24 HPI PE HPI Details Patient is a 74 y/o M here today for routine annual physical Patient has a past medical history of hypertension, hyperlipidemia, BPH, coronary artery disease.. Concern--> recently was evaluated at a local urgent care for tooth abscess, was started on Augmentin. He will be following up with a dentist ? .. ? CAD: Patient was followed by Dr. Sesay, recent cardiac showing moderate hypertrophic cardiomyopathy.? This will be followed and no? intervention at the same.? Patient denies any issues with chest pain, headaches, dizziness. .. AFib (paroxysmal): Continues on anticoagulation without any overt signs of bleeding Denies any overt signs of bleeding. Rate / rhythm control with metoprolol and multaq. ECHO- showing LVH and holter has been stable. No evidence of protein deposit disease. 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 Otherwise patient is asymptomatic without any chest discomfort, dizziness or heart palpitations. .. Hypertension:? Blood pressure acceptable today in office. On recheck of his blood pressure much improved. Does not normally check his blood pressure, asymptomatic without any headaches, shortness of breath, chest pain or blurry vision. ? .. ? Impaired fasting blood sugars:? Patient's blood sugars slightly elevated at 106. He will work on low carbohydrate diet. Will recheck fasting blood sugars ? .. ? Elevated PSA: The patient has an elevated PSA level, rising from 7 to 13.9 in six months, with increased nocturnal urinary frequency. There is no family history of prostate cancer, but his father had bladder cancer.. ? .. ? HLD: Has been stable , no side effects from the statin. Colorectal cancer screening: Needs colorectal cancer screening, has had Cologuard though has not been able complete Vaccines: Up-to-date with COVID vaccine, tetanus vaccine, shingles vaccine, considering a pneumonia vaccine Laboratory Tests 08/09/24 02/12/25 06:34 06:24 RBC 4.94 Creatinine 0.89 Fasting Glucose 106 H 136 H Hemoglobin A1c % 5.5 Cholesterol 154 148 LDL Cholesterol, C alc 78 68 PSA Screen 7.07 H 13.97 H PFSH Medical History Dental abscess Elevated PSA History of COVID-19 Persistent atrial fibrillation CAD (coronary artery disease) Thoracic aortic aneurysm Mitral regurgitation LVH (left ventricular hypertrophy) HTN (hypertension) HOCM (hypertrophic obstructive cardiomyopathy) Surgical History No pertinent past surgical history Family History Father Bladder cancer Mother ARF (acute renal failure) Social History Housing: House Are you a primary pharmacy care coordinator to a significant other at home: No Do you presently have visiting nurse or other home services: No Alcohol intake: current Alcohol intake frequency: holidays/special occasions only Patient Tobacco Use Status: Never used Tobacco e-Cigarette/Vaping Use: Never Used Second Hand Smoke Exposure: No service: No Current occupational status: employed Current occupational exposures/hazards: No Cognitive needs: No Hearing needs: No Vision needs: Yes Questionnaire PHQ-9 Over the last 2 weeks, how often have you been bothered by any of the following problems? 1. Little interest or pleasure in doing things: not at all 2. Feeling down, depressed, or hopeless: not at all 3. Trouble falling or staying asleep, or sleeping too much: not at all 4. Feeling tired or having little energy: not at all 5. Poor appetite or overeating: not at all 6. Feeling bad about yourself - or that you are a failure or have let yourself or your family down: not at all 7. Trouble concentrating on things, such as reading the newspaper or watching television: not at all 8. Moving or speaking so slowly that other people could have noticed. Or the opposite - being so fidgety or restless that you have been moving around a lot more than usual: not at all 9. Thoughts that you would be better off or of hurting yourself in some way: not at all Total score: 0 Depression Screening Interpretation: Negative Depression Screening Done: Yes 12578 - PHQ-9 Billing: Yes Source: Developed by Drs. Wilberto Gottlieb, Adelita Erazo, Jin Sabillon and colleagues, with an educational loyd from [employer]. Thrive Questionnaire Date Thrive assessed: 08/10/24 I am a: Patient What is your living situation today?: I have a steady place to live Within the past 12 months, did the food you bought not last and you didn't have the money to get more?: Never true Within the past 12 months, did you worry whether your food would run out before you got money to buy more?: Never true Do you have trouble paying for medicines?: No Do you have trouble getting transportation to medical appointments?: No Do you have trouble paying your heating and electricity bill?: No Do you have trouble taking care of your child, family member or friend?: No Do you have trouble with day-to-day activities such as bathing, preparing meals, shopping, managing finances, etc.?: No Are you currently unemployed and looking for a job?: No Are you interested in more education?: No Please select the resources that you would like help with: None Currently or been in a relationship where the following occur: No concerns reported THRIVE Score: 0 AUDIT C Alcohol Use Questionnaire (AUDIT-C) 1. How often do you have a drink containing alcohol?: Monthly or less 2. How many drinks containing alcohol do you have on a typical day when you are drinking?: 1 or 2 3. How often do you have six or more drinks on one occasion?: Never Total Score: 1 TARIQ-7 AMB Questionnaire TARIQ-7 Date TARIQ - 7 assessed: 08/10/24 Feeling nervous, anxious, or on edge: 0 = Not at all Not being able to stop or control worryin = Not at all Worrying too much about different things: 0 = Not at all Trouble relaxin = Not at all Being so restless that it is hard to sit still: 0 = Not at all Becoming easily annoyed or irritable: 0 = Not at all Feeling afraid as if something awful might happen: 0 = Not at all Total TARIQ-7 score (0-4 normal; 5-9 mild; 10-14 moderate; 15-21 severe): 0 Source: Developed by Drs. Wilberto Gottlieb, Adelita Erazo, Jin Sabillon and colleagues, with an educational loyd from [employer]. TARIQ-7 Assessment Billing TARIQ-7 Assessment Tool: TARIQ-7 Assessment 11497 Review of Systems Const Denies body aches, Denies chills, Denies excessive sweating, Denies fatigue, Denies fever(s) and Denies headache(s) Eyes Denies blurry vision ENT Denies dysphagia, Denies vertigo, Denies dizziness, Denies headache(s), Denies hearing loss and Denies tinnitus Card Denies chest pain, Denies chest pain with activity, Denies syncope, Denies irregular heart rhythm and Denies dyspnea Resp Denies chest congestion, Denies cough, Denies hemoptysis, Denies dyspnea and Denies wheezing GI Denies abdominal pain, Denies melena, Denies hematochezia, Denies coffee ground emesis, Denies dysphagia, Denies diarrhea, Denies nausea and Denies vomiting Denies difficulty urinating, Denies dysuria, Denies urinary frequency, Denies urinary hesitancy and Denies urinary urgency Musc Denies arthralgias, Denies limited range of motion, Denies muscle cramps and Denies muscle weakness Skin/Breast Denies rash and Denies skin ulcer Neuro Denies Abnormal speech present, Denies confusion, Denies vertigo, Denies dizziness, Denies syncope, Denies headache(s), Denies memory loss and Denies seizure-like activity Psych Denies anxiety, Denies confusion, Denies depression, Denies memory loss, Denies panic attacks and Denies paranoia Endo Denies excessive sweating, Denies fatigue, Denies flushing, Denies polydipsia and Denies polyuria Aller/Immun Denies wheezing Physical exam (Primary Care) Vital Signs: Last Vital Signs Temp 97.3 F 02/14/25 08:08 Pulse 101 H 02/14/25 08:08 BP 132/62 02/14/25 08:08 Pulse Ox 96 02/14/25 08:08 Oxygen Delivery Method Room Air 02/14/25 08:08 BMI result Body Mass Index 27.0 Tobacco/Smoking Status: Tobacco use Status Tobacco use date assessed 02/14/25 02/14/25 08:14 Patient Tobacco Use Status Never used Tobacco 02/14/25 08:14 e-Cigarette/Vaping Use Never Used 02/14/25 08:14 PHQ-9: PHQ-9 Score PHQ-9: Total score 0 02/14/25 08:14 Depression Screening Interpretation: Negative Thrive Assessment: Date of Thrive Assessment Date Thrive assessed 08/10/24 02/14/25 08:14 Currently or been in a relationship where the following occur: No concerns reported Const General: cooperative, comfortable, no acute distress, alert and awake; No confusion Orientation/consciousness: oriented to person, oriented to place, patient oriented x3 and No confusion HENMT Head: Yes normocephalic Ears: external ears normal and TM's normal bilaterally Face and sinus: No sinus tenderness Mouth: Normal oral and palatal mucosa present and tongue normal Teeth and gingiva: dentition normal and gingiva normal Throat: Yes posterior oropharynx normal, Yes tonsils normal and Yes uvula midline Eyes Conjunctivae: conjunctivae normal Sclerae: sclerae normal Pupils: Equal, round and reactive pupils present EOM: EOMs intact bilaterally Direct Ophthalmoscopy: No no photophobia Neck Neck: Yes no lymphadenopathy, No tender and Yes no JVD Thyroid: Thyroid normal Carotids: no bruits Chest Chest palpation & inspection: no tenderness Resp Effort & Inspection: normal respiratory effort, no audible wheezes, not labored and no stridor Auscultation: no crackles, no rales, no rhonchi and no wheezes Cardio Jugular venous distension: no JVD Rate: regular rate, not bradycardic and not tachycardic Rhythm: regular rhythm Bruits: no carotid bruits Peripheral pulses: Peripheral pulses 2+ throughout GI Inspection: Yes normal to inspection, No abdominal wall ecchymosis and No visible herniation Palpation (GI): Soft to palpation, nontender, no guarding, not rigid and No hepatosplenomegaly present Auscultation: normoactive bowel sounds General: Yes no CVA tenderness Back/Spine/Pelvis Back: no CVA tenderness and No back tenderness Cervical Spine: cervical ROM normal Thoracic/Lumbar Spine: thoracic and lumbar spine normal to inspection, straight leg raise negative bilaterally, No thoraco-lumbar ROM limited and No lumbar spinal tenderness Skin Lesions: no lesions Rashes: no rashes Wounds: no wounds Neuro General: oriented to person, oriented to place, patient oriented x3, CN's II-XI intact bilaterally and No confusion Cranial nerves: Yes Equal, round and reactive pupils present and Yes Normal accommodation reflex present Cognition (Neuro): normal cognition Speech: No Abnormal speech present Gait exam (Neuro): Normal gait present Motor exam (neuro): 5/5 motor strength present throughout Extrem Right upper extremity: full ROM; no cyanosis Left upper extremity: full ROM; no cyanosis Right lower extremity: no edema Left lower extremity: no edema Psych Appearance: grossly normal Mental Status: mental status grossly normal Affect: normal affect Attitude: cooperative Thought process: Normal thought process present Coding Level of Care Code Est Pt Prev Care >65y(70224) Diagnoses Annual physical exam Z00.00 Paroxysmal atrial fibrillation I48.0 Coronary artery disease involving chilkat coronary artery of chilkat heart without angina pectoris I25.10 Coronary Disease-Associated Artery/Lesion type: chilkat artery [place] vs. transplanted heart: chilkat heart Associated angina: without angina Primary hypertension I10 Hypertension type: primary hypertension Elevated PSA R97.20 HOCM (hypertrophic obstructive cardiomyopathy) I42.1 Impaired glucose metabolism R73.09 Colon cancer screening Z12.11 Additional Codes PHQ-9 - 72658 - PHQ-9 Billing: Yes ([id number]) TARIQ-7 Assessment Billing - TARIQ-7 Assessment Tool: TARIQ-7 Assessment 83685 ([id number]) Assessment & Plan Assessment & Plan (1) Annual physical exam: Code(s): Z00.00 - Encounter for general adult medical examination without abnormal findings Category: Medical Plan: As per HPI (2) Paroxysmal atrial fibrillation: Code(s): I48.0 - Paroxysmal atrial fibrillation Category: Medical Plan: Patient continues to follow cardiology. Continues on apixaban 5 mg b.i.d. without any overt signs of bleeding. He is under rate and rhythm control with Multaq and metoprolol with good effect. He is concerned about the bush a Multaq and is looking around for cheaper medication. (3) CAD (coronary artery disease): Code(s): I25.10 - Atherosclerotic heart disease of chilkat coronary artery without angina pectoris Category: Medical Qualifiers: Coronary Disease-Associated Artery/Lesion type: chilkat artery [place] vs. transplanted heart: chilkat heart Associated angina: without angina Qualified Code(s): I25.10 - Atherosclerotic heart disease of chilkat coronary artery without angina pectoris Plan: Patient's most recent lipid panel showing good control of his total cholesterol. LDL appropriately controlled. Goal will continue to work on low cholesterol diet. Goal LDL is to remain the optimally below 70 (4) HTN (hypertension): Code(s): I10 - Essential (primary) hypertension Category: Medical Qualifiers: Hypertension type: primary hypertension Qualified Code(s): I10 - Essential (primary) hypertension Plan: Patient's blood pressure acceptable today in office. Will continue current dose of lisinopril and metoprolol with goal blood pressure to be below 140/90 (5) Elevated PSA: Code(s): R97.20 - Elevated prostate specific antigen [PSA] Category: Medical Plan: A referral to a urologist is recommended for further evaluation of the elevated PSA levels. The patient is advised to consider starting finasteride to manage prostate enlargement, with a follow-up PSA test planned in 90 days. (6) HOCM (hypertrophic obstructive cardiomyopathy): Code(s): I42.1 - Obstructive hypertrophic cardiomyopathy Category: Medical Plan: Continues to follow cardiology and gets regular echocardiograms. (7) Impaired glucose metabolism: Code(s): R73.09 - Other abnormal glucose Category: Medical Plan: Most recent fasting blood sugar elevated at 130 Most recent A1c of 5.5 Will work on low carbohydrate diet. (8) Colon cancer screening: Code(s): Z12.11 - Encounter for screening for malignant neoplasm of colon Category: Medical Plan: Patient now willing to complete a Cologuard Orders: Orders Lipid Panel Today I25.10 - Atherosclerotic heart disease of chilkat coronary artery without angina pectoris Prostate Specific Antigen Scr Today R97.20 - Elevated prostate specific antigen [PSA], Z12.5 - Encounter for screening for malignant neoplasm of prostate Hemoglobin A1c Today R73.09 - Other abnormal glucose Comprehensive Normal. Panel Fast Today I10 - Essential (primary) hypertension Complete Blood Count no Diff Today I10 - Essential (primary) hypertension Referrals Urology Referral R97.20 - Elevated prostate specific antigen [PSA] Cologuard Test Z12.11 - Encounter for screening for malignant neoplasm of colon Medications: New finasteride 5 mg PO DAILY 90 tabs 1RF 90 days R97.20 - Elevated prostate specific antigen [PSA]
[2025-02-14 08:08] VITALS: BP 132/62; PULSE 101; TEMP 36.3; O2SAT 96; BMI 27.0
== END 2025-02-14 08:36 | disposition home or self-care (01) ==
LOC: HO.HMCH 07:57
PROVIDERS: PCP Physician Assistant; Visit Provider Physician Assistant
DX: Z00.00 Encounter for general adult medical examination without abnormal findings (principal); I48.0 Paroxysmal atrial fibrillation; I42.1 Obstructive hypertrophic cardiomyopathy; I25.10 Atherosclerotic heart disease of native coronary artery without angina pectoris; I10 Essential (primary) hypertension; R97.20 Elevated prostate specific antigen [PSA]; R73.09 Other abnormal glucose; Z12.11 Encounter for screening for malignant neoplasm of colon

== ENCOUNTER → 2025-02-14 07:56 | Outpatient (BNVA) | payer MEDICARE, SELFPAY | PROVIDERS: PCP Physician Assistant; Visit Provider Physician Assistant | DX: Z00.00 Encounter for general adult medical examination without abnormal findings (principal); I25.10 Atherosclerotic heart disease of native coronary artery without angina pectoris; I10 Essential (primary) hypertension; E78.5 Hyperlipidemia, unspecified; I48.91 Unspecified atrial fibrillation; I48.0 Paroxysmal atrial fibrillation; R97.20 Elevated prostate specific antigen [PSA]; I42.1 Obstructive hypertrophic cardiomyopathy; R73.09 Other abnormal glucose; Z79.01 Long term (current) use of anticoagulants | CPT/HCPCS: 96127; 99397 ==

== ENCOUNTER 2025-04-02 08:13 | Outpatient (AMB) | payer MEDICARE, SELFPAY ==
--- NOTE | 2025-04-02 08:21 | A.OFFVIS_ITS ---
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 Noted to be in recurrent atrial flutter today. After discussing about treatment options he mentioned to me that he has not been religiously taking his Multaq and has been missing his some of the evening doses as well as missing Eliquis evening doses sometimes. He said this is just somewhat of negligence on his part but he forgets because of his busy life. He continues to work. He denies any new symptoms. Unclear as to how long he has been back in atrial flutter. Denies any worsening shortness of breath, fatigue, lightheadedness, palpitations. No bleeding issues or neurologic events. He has not had any recent blood work or echocardiogram done as requested in his last visit. [facility] Medical History Dental abscess Elevated PSA History of COVID-19 Persistent atrial fibrillation CAD (coronary artery disease) Thoracic aortic aneurysm Mitral regurgitation LVH (left ventricular hypertrophy) HTN (hypertension) HOCM (hypertrophic obstructive cardiomyopathy) Surgical History No pertinent past surgical history Family History Father Bladder cancer Mother ARF (acute renal failure) Social History Housing: House Are you a primary acute care certified nursing assistant to a significant other at home: No Do you presently have visiting nurse or other home services: No Alcohol intake: current Alcohol intake frequency: holidays/special occasions only Patient Tobacco Use Status: Never used Tobacco e-Cigarette/Vaping Use: Never Used Second Hand Smoke Exposure: No service: No Current occupational status: employed Current occupational exposures/hazards: No Cognitive needs: No Hearing needs: No Vision needs: Yes Review of Systems Const Denies daytime sleepiness, Denies difficulty sleeping, Denies snoring, Denies stops breathing during sleep and Denies weakness Card Denies chest pain, Denies rapid heart rate, Denies irregular heart rhythm, Denies claudication, Denies leg edema, Denies lightheadedness, Denies palpitations, Denies dyspnea, Denies dyspnea on exertion, Denies orthopnea, Denies paroxysmal nocturnal dyspnea and Denies slow heart rate Resp Denies cough, Denies dyspnea, Denies dyspnea on exertion and Denies snoring GI Reports no additional complaints, Denies hematochezia, Denies change in stool character and Denies dyspepsia Musc Denies abnormal gait, Denies muscle weakness and Denies numbness Neuro Denies abnormal gait, Denies numbness and Denies weakness Endo Denies palpitations Physical Exam Vital Signs: Last Vital Signs Pulse 98 04/02/25 08:22 BP 134/82 04/02/25 08:22 BMI result Body Mass Index 28.0 Const General: cooperative, comfortable, no acute distress, alert, awake, Physically active and other (Frustrated) Nutritional Appearance: overweight Orientation/consciousness: patient oriented x3 Limitations: no limitations Neck Neck: Yes trachea midline, Yes supple and Yes no JVD Resp Effort & Inspection: normal respiratory effort Auscultation: clear to auscultation bilaterally Cardio Jugular venous distension: no JVD Palpation: normal PMI Rhythm: abnormal rhythm irregularly irregular Heart sounds: S1 normal heart sound present, S2 normal heart sound present, no click, no gallops and Murmur heart sound present systolic early GI Auscultation: normal bowel sounds Skin General skin exam: no rashes or lesions noted Neuro General: patient oriented x3 and no focal motor deficits Extrem General: Yes no clubbing, cyanosis or edema Psych Appearance: grossly normal Office Procedures EKG Details: EKG shows atrial flutter with variable conduction with PVC versus aberrantly conducted complex. [id number], Complete Assessment & Plan Assessment & Plan (1) Atrial flutter: Code(s): I48.92 - Unspecified atrial flutter Category: Medical Plan: Patient is now in recurrent atrial flutter appears to be left-sided atrial flutter based on the EKGs with his prior left atrial pathology. Possibility of recurrence of atrial flutter include noncompliance with his antiarrhythmic drug therapy and this possible failure of maintaining rhythm due to that. I would not considered this is a failure of Multaq therapy at this point in time. I have therefore suggested him to pursue rhythm control on taking Multaq religiously. I advised him various options to make sure that he is able to comply with his medications and tied it with some behavior at nighttime. He understands and agrees. He also has been missing his Eliquis doses. If he is going to pursue synchronized cardioversion he will need a LARRY to rule out intracardiac thrombus prior to pursuing cardioversion. Importance of compliance with medication was discussed. Stress mitigation strategies was discussed. Avoidance of stimulants was discussed including alcohol. He understands and agrees. He does have significant left atrial pathology with left atrial enlargement and likelihood of fdc maintenance of rhythm will be difficult and this was discussed with him. If he fails Multaq therapy alternatives were discussed including ablation and other antiarrhythmic drug. He is not quite interested in pursuing more aggressive therapy as he thinks that he has no symptoms. Possibility of developing demo coordinator heart failure as well as reduce longevity with persistent atrial fibrillation was discussed based on the data. He showed understanding. Semi annual renal function test and annual CBC should be pursued. I discussed with him if he had going to pursue rhythm control approach to do it as soon as possible to avoid persistent long-lasting atrial flutter/fibrillation which should make it more difficult to pursue rhythm control approach. Risks and benefits of LARRY as well as synchronized cardioversion were discussed in details. (2) HOCM (hypertrophic obstructive cardiomyopathy): Code(s): I42.1 - Obstructive hypertrophic cardiomyopathy Category: Medical Plan: Hypertrophic obstructive cardiomyopathy without any obvious symptoms at current point time despite atrial flutter. More likely to develop heart failure syndrome with persistent atrial fibrillation this was discussed with him. Continue aggressive blood pressure control. Pursue rhythm control approach with currently not having any symptoms. Follow-up echocardiogram in near future. (3) Thoracic aortic aneurysm: Code(s): I71.2 - Thoracic aortic aneurysm, without rupture Category: Medical Qualifiers: Thoracic aorta location: ascending aorta Presence of rupture: without rupture Qualified Code(s): I71.21 - Aneurysm of the ascending aorta, without rupture Plan: Mild thoracic aortic aneurysm which has remained stable. Continue aggressive blood pressure control. Repeat echocardiogram as above. Will follow up in the clinic in 3 months time, sooner PRN. Thank you for allowing me to partake in his care Orders: Orders Basic Metabolic Panel Today I48.92 - Unspecified atrial flutter Complete Blood Count no Diff Today I48.92 - Unspecified atrial flutter Coding Level of Care Code Est Pt Level 4 (27666) Complex EM visit Add On G2211 Diagnoses Atrial flutter I48.92 HOCM (hypertrophic obstructive cardiomyopathy) I42.1 Aneurysm of ascending aorta without rupture I71.21 Thoracic aorta location: ascending aorta Presence of rupture: without rupture CPT Codes EKG - CPT: 39958-[id number], Complete ([id number])
[2025-04-02 08:22] VITALS: BP 134/82; PULSE 98; BMI 28.0
== END 2025-04-02 09:03 | disposition home or self-care (01) ==
LOC: HO.HCS 08:13
PROVIDERS: PCP Physician Assistant; Visit Provider Internal Medicine Cardiovascular Disease
DX: I48.92 Unspecified atrial flutter (principal); I42.1 Obstructive hypertrophic cardiomyopathy; I71.21 Aneurysm of the ascending aorta, without rupture
CPT/HCPCS: 93010; 99214; G2211

== ENCOUNTER → 2025-04-02 08:13 | Outpatient (BNVA) | payer MEDICARE, SELFPAY | PROVIDERS: PCP Physician Assistant; Visit Provider Internal Medicine Cardiovascular Disease | DX: I42.1 Obstructive hypertrophic cardiomyopathy (principal); I48.92 Unspecified atrial flutter; I71.21 Aneurysm of the ascending aorta, without rupture | CPT/HCPCS: 93005; 99212 ==